=== PATIENT | male | born 1945 | race Caucasian/White ===

== ENCOUNTER 2016-06-07 12:17 | Emergency (ER) | payer MEDICARE ==
[~2016-06-07] VITALS: Ht 177.8 cm; Wt 85.7 kg
[~2016-06-07 12:17] MED LIST: ASPIR 8181 MG PO; FERROUS SULFAT325 MG ORAL; IBUPROFEN600 MG ORAL; LOVASTATIN40 MG PO; OMEPRAZOLE20 M2 PO; RESTORIL7.5 MG ORAL; TRAMADOL HCL50 MG ORAL; ZOVIRAX800 MG ORAL; [UNRECOGNIZED DRUG - REMARK]; [UNRECOGNIZED DRUG - REMARK]
[2016-06-07 13:30] LABS: APPEARANCE,URINE CLEAR; BASOPHILS % (AUTO) 0.8 % (0.0-2.0); KETONES,URINE 1+ (NEGATIVE); LEUKOCYTE ESTERASE ,URINE 1+ (NEGATIVE); LYMPHOCYTES % (AUTO) 27.8 % (20.0-45.0); MEAN CORPUSCULAR HGB CONC 32.8 G/DL (32.0-36.0); MEAN CORPUSCULAR VOLUME 88 FL (80-99); MEAN PLATELET VOLUME 8.4 FL (6.5-10.1); MONOCYTES % (AUTO) 8.6 % (1.0-10.0); NEUTROPHILS % (AUTO) 58.8 % (45.0-75.0); NITRITE,URINE NEGATIVE (NEGATIVE); PH,URINE 5 (4.5-8.0); PLATELET COUNT 158 K/UL (150-450); PROTEIN,URINE 1+ (NEGATIVE); RED CELL DISTRIBUTION WIDTH 12.5 % (11.6-14.8); UROBILINOGEN,URINE 1 MG/DL (0.0-1.0); WHITE BLOOD COUNT 5.9 K/UL (4.8-10.8)
[2016-06-07 13:37] VITALS: BP 107/67
[2016-06-07 13:38] VITALS: BP 113/71
[2016-06-07 13:39] VITALS: BP 113/71
[2016-06-07 13:41] LABS: ALANINE AMINOTRANSFERASE 14 U/L (3-41); ALBUMIN/GLOBULIN RATIO 1.3 (1.0-2.7); ANION GAP 16 (5-15); ASPARTATE AMINO TRANSFERASE 14 U/L (5-40); CALCIUM 9.3 mg/dL (8.6-10.2); CARBON DIOXIDE 20 mEQ/L (20-30); CHLORIDE 103 mEQ/L (98-107); HEMOLYSIS 10; LIPASE 33 U/L (< 60); POTASSIUM 4.2 mEQ/L (3.4-4.9); SODIUM 139 mEQ/L (135-145); TOTAL PROTEIN 6.4 g/dL (6.6-8.7)
[2016-06-07 13:45] LABS: BACTERIA,URINE FEW /HPF; MUCUS,URINE MODERATE /LPF (NONE/OCC); PROTHROMBIN TIME 10.3 SEC (9.30-11.50); RBC,URINE 0-2 /HPF (0 - 0); SQUAMOUS EPITHELIAL CELL,UR OCCASIONAL /LPF (NONE/OCC)
--- NOTE | 2016-06-07 13:46 | Emergency Room Report ---
History of Present Illness General Chief Complaint: Gastrointestinal Bleed Source: Patient Present Illness [facility] This is a patient of Dr. Thomson, who has a complaint of rectal bleeding, over the last 3 days. He has a background of constipation and some hemorrhoids with abnormal colonoscopy approximately 6 years ago with rectal polyps. He was seen by primary yesterday and noted having 3 days of bleeding somewhat copious in the bathroom noted blood on his stool and in the bowl. He describes mild abdominal cramping but no bleeding in between bowel movements, no bowel movement today but lesser bleeding bowel movement yesterday. His primary found to have some signs of orthostatic hypotension he was concerned and referred into the ER. He spoke with me on the phone as the patient was being brought into the ER today. The patient self is not a blood there's and is denies vomiting chest pain abdominal pain fevers or chills. Denies a history of diverticulitis or low cyst to his knowledge. 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 He also has history of GERD. No history of abdominal surgery or ulcers. His primary doctor performed a rectal and stated there was blood in the stool, and the patient also reports no changes in medications or abdominal trauma. Allergies: Coded Allergies: No Known Allergies (Unverified , 07/14/12) Patient History Social History: Reports: drug use, Denies: alcohol use, smoking Immunizations: UTD Reviewed Nursing Documentation: PMH: Agreed Nursing Documentation-PM Past Medical History: No History, Except For Hx Cardiac Problems: Yes Hx Cancer: No Hx Gastrointestinal Problems: Yes - GERD Hx Neurological Problems: No Review of Systems Gastrointestinal: Reports: abdominal pain, other - dark red blood per rectum, with stool, see HPI All Other Systems: negative except mentioned in HPI Physical Exam Vital Signs Date Time Temp Pulse Resp B/P Pulse Ox O2 Delivery O2 Flow Rate FiO2 06/07/16 12:25 97.0 95 16 115/76 96 Room Air Sp02 EP Interpretation: reviewed, abnormal - near tachycardia General Appearance: normal inspection, well appearing, no apparent distress, alert Head: atraumatic Eyes: bilateral eye normal inspection ENT: normal ENT inspection, hearing grossly normal, normal voice Neck: normal inspection, full range of motion, supple, no bony tend Respiratory: normal inspection, lungs clear, normal breath sounds, no respiratory distress, no retraction, no wheezing Cardiovascular #1: regular rate, rhythm, no edema Gastrointestinal: normal bowel sounds, non tender, soft, no guarding, no hernia Genitourinary: no CVA tenderness Musculoskeletal: normal inspection, back normal, normal range of motion Neurologic: normal inspection, alert, responsive, network architect III-XII nml as tested, speech normal Psychiatric: normal inspection, judgement/insight normal, mood/affect normal Skin: normal inspection, normal color, no rash Medical Decision Making Diagnostic Impression: Primary Impression: Gastrointestinal hemorrhage ER Course Well-appearing 71-year-old gentleman with history of rectal bleeding. Not hypotensive on my exam and overall cooperative. Possibility of diverticulitis versus bleeding AV malformation versus severe hemorrhoidal bleeding. Also possible peptic ulcer disease for brisk bleeding. Overall well-appearing but will perform basic blood work to include type and cross as well as a CT scan of the abdomen with contrast for further evaluation, and will followup with his primary Dr. Spoke with Dr. Thomson regarding CT scan and labs. Patient is not orthostatic. Patient is overall doing well and shows no signs of anemia. Patient is being referred to followup with his GI doctor as well as his primary doctor regarding the renal mass. Discussed plan with patient who agrees with followup as an outpatient. Laboratory Tests Test 06/07/16 13:00 White Blood Count 5.9 K/UL (4.8-10.8) Red Blood Count 4.70 M/UL (4.70-6.10) Hemoglobin 13.6 G/DL (14.2-18.0) L Hematocrit 41.5 % (42.0-52.0) L Mean Corpuscular Volume 88 FL (80-99) Mean Corpuscular Hemoglobin 29.0 PG (27.0-31.0) Mean Corpuscular Hemoglobin Concent 32.8 G/DL (32.0-36.0) Red Cell Distribution Width 12.5 % (11.6-14.8) Platelet Count 158 K/UL (150-450) Mean Platelet Volume 8.4 FL (6.5-10.1) Neutrophils (%) (Auto) 58.8 % (45.0-75.0) Lymphocytes (%) (Auto) 27.8 % (20.0-45.0) Monocytes (%) (Auto) 8.6 % (1.0-10.0) Eosinophils (%) (Auto) 4.0 % (0.0-3.0) H Basophils (%) (Auto) 0.8 % (0.0-2.0) Prothrombin Time 10.3 SEC (9.30-11.50) Prothromb Time International Ratio 1.0 (0.9-1.1) Activated Partial Thromboplast Time 26 SEC (23-33) Urine Color Yellow Urine Appearance Clear Urine pH 5 (4.5-8.0) Urine Specific [place] 1.030 (1.005-1.035) Urine Protein 1+ (NEGATIVE) H Urine Glucose (UA) Negative (NEGATIVE) Urine Ketones 1+ (NEGATIVE) H Urine Occult Blood Negative (NEGATIVE) Urine Nitrite Negative (NEGATIVE) Urine Bilirubin Negative (NEGATIVE) Urine Urobilinogen 1 MG/DL (0.0-1.0) H Urine Leukocyte Esterase 1+ (NEGATIVE) H Urine RBC 0-2 /HPF (0 - 0) H Urine WBC 2-4 /HPF (0 - 0) Urine Squamous Epithelial Cells Occasional /LPF Urine Bacteria Few /HPF (NONE) Urine Mucus Moderate /LPF (NONE/OCC) H Sodium Level 139 mEQ/L (135-145) Potassium Level 4.2 mEQ/L (3.4-4.9) Chloride Level 103 mEQ/L (98-107) Carbon Dioxide Level 20 mEQ/L (20-30) Anion Gap 16 (5-15) H Blood Urea Nitrogen 17 mg/dL (7-23) Creatinine 1.0 mg/dL (0.7-1.2) Estimat Glomerular Filtration Rate mL/min (>60) Glucose Level 91 mg/dL (74-106) Calcium Level 9.3 mg/dL (8.6-10.2) Total Bilirubin 0.4 mg/dL (0.0-1.2) Aspartate Amino Transf (AST/SGOT) 14 U/L (5-40) Alanine Aminotransferase (ALT/SGPT) 14 U/L (3-41) Alkaline Phosphatase 85 U/L (40-129) Total Protein 6.4 g/dL (6.6-8.7) L Albumin 3.7 g/dL (3.5-5.2) Globulin 2.7 g/dL Albumin/Globulin Ratio 1.3 (1.0-2.7) Lipase 33 U/L (< 60) EKG Diagnostic Results EKG Time: 13:14 EP Interpretation: normal sinus, left bundle-branch, rate 73 Rhythm: NSR ST Segments: no acute changes Rhythm Strip Diag. Results Rhythm Strip Time: 13:46 EP Interpretation: yes Rate: 93 Rhythm: NSR, no PVC's, no ectopy CT/MRI/US Diagnostic Results CT/MRI/US Diagnostic Results : Imaging Test Ordered: CT abdomen and pelvis w/contrast Impression No sign of GI bleed, mass, diverticulitis. Right-sided renal mass which may be suspicious for neoplasm. Reevaluation Time: 15:52 Last Vital Signs Date Time Temp Pulse Resp B/P Pulse Ox O2 Delivery O2 Flow Rate FiO2 06/07/16 12:25 97.0 95 16 115/76 96 Room Air Status: unchanged Disposition: HOME, SELF-CARE Condition: Stable Scripts Pramoxine Hcl (PROCTOFOAM) 15 Gm Foam 15 GM TP BID for 7 Days, #14 % Prov: Lex Horton MD 06/07/16 Referrals: IRAJ THOMSON (PCP) Lex Horton MD Jun 07, 2016 13:46
[2016-06-07] MEDS ORDERED: PROCTOFOAM15 GM TP (15:39)
[2016-06-07 16:00] VITALS: BP 109/70
[2016-06-07 16:03] VITALS: BP 109/70
--- NOTE | 2016-06-08 07:55 | Diagnostic Imaging Report ---
Indication: Abdominal pain Technique: Continuous helical transaxial imaging of the abdomen and pelvis was obtained from the lung bases to the pubic symphysis during intravenous contrast administration. Coronal 2-D reformats were also obtained. Study obtained in a Siemens sensation [address] Total Dose length Product (DLP): [address] Dose Index Volume (CTDIvol): 18 mGy Comparison: None Findings: There is mild posterior basilar atelectasis demonstrated. Moderate size hiatal hernia is present. Gallbladder is contracted. Liver and spleen are normal. Pancreas is unremarkable. There is a left renal cyst. In the upper pole the right kidney there is an enhancing mass measuring approximately 2.2 cm. This is suspicious for a solid tumor. More comprehensive evaluation would consist of a multiphase contrast CT. No adenopathy is appreciated. There is no free fluid or free air. No evidence of bowel obstruction. Prostate gland is enlarged measuring 6.7 x 5.8 x 8.5 cm. Appendectomy noted. Atherosclerotic plaques in the aorta demonstrated. Impression: 2.2 cm mass upper pole right kidney suspicious for renal cell carcinoma. More comprehensive evaluation with multiphase CT recommended. Prostate enlargement. Contracted gallbladder. Atherosclerotic vascular disease. Status post appendectomy Left renal cyst Posterior basilar atelectasis Moderate size hiatal hernia The CT scanner at [facility] is accredited by the [employer] and the scans are performed using protocols designed to limit radiation exposure to as low as reasonably achievable to attain images of sufficient resolution adequate for diagnostic evaluation.
--- NOTE | 2016-06-08 23:23 | Cardiology Report ---
APPROVED REPORT EKG Measurement Heart [id number] Normal sinus rhythm Left bundle branch block Abnormal ECG
== END 2016-06-07 16:03 | disposition home or self-care (01) ==
LOC: EMR 12:48
DX: K92.2 Gastrointestinal hemorrhage, unspecified (principal); Z86.010 Personal history of colon polyps; Z87.19 Personal history of other diseases of the digestive system
CPT/HCPCS: 36415; 74177; 80053; 81003; 83690; 85025; 85610; 85730; 86850; 86900; 86901; 93005; 96374; 96375; 99284; Q9967

== ENCOUNTER → 2016-06-30 | Outpatient (CLI) | payer MEDICARE ==
[~2016-06-30] MED LIST changes: +PROCTOFOAM15 GM TP
--- NOTE | 2016-06-30 16:30 | Diagnostic Imaging Report ---
Indication: Renal mass Technique: MRI examination of the abdomen was performed in a 1.5 Edna magnet. Sequences obtained include coronal and axial T2 single shot fast spin-echo, axial T2 fast recovery fast spin-echo with fat saturation, axial and coronal LAVA pre-and post gadolinium in multiple phases of enhancement, axial 3-D T1 gradient echo in and out of phase. Comparison: CT 06/07/16 Findings: There is a 2.2 cm mass demonstrated in the upper pole the right kidney. The mass is solid and demonstrates enhancement with gadolinium. The mass appears to enhance most intensely at the peripheral margin on early arterial phase. On noncontrast imaging the mass is isointense to surrounding renal parenchyma on T1-weighted images and is fairly bright on T2-weighted images. Findings are consistent with renal cell carcinoma until proven otherwise. There are some breathing motion limiting evaluation. There is a cyst in the midpole of the left kidney measuring 2.4 cm. Gallbladder is absent. No biliary ductal dilatation is seen. There is no ascites identified. Moderate size hiatal hernia noted. Impression: 2.2 cm enhancing mass in the upper pole the right kidney consistent with renal cell carcinoma. Left renal cyst Moderate hiatal hernia Breathing motion artifacts
== END | disposition home or self-care (01) ==
LOC: MRI 14:21
DX: N28.1 Cyst of kidney, acquired (principal); K44.9 Diaphragmatic hernia without obstruction or gangrene
CPT/HCPCS: 74183; A9579

== ENCOUNTER 2018-06-13 16:07 | Inpatient (IN) | payer MEDICARE ==
[~2018-06-13] VITALS: Ht 177.8 cm; Wt 84.4 kg
--- NOTE | 2018-06-13 16:16 | Emergency Room Report ---
History of Present Illness General Chief Complaint: Weakness Source: Patient Present Illness HPI Patient is a 73-year-old male who presented after increased diarrhea. Patient was noted to be hypotensive at his physician's office. Patient had been having increased generalized weakness. Patient reports having multiple episodes of nonbloody stool. He denies any vomiting. He denies any abdominal pain apart from some intermittent cramping. He denies any fever. He states he been having increased dizziness with upright position.Patient states he had prior history of AICD. He denies any prior history of congestive heart failure. He denies any severe headache or extremity pain. He denies any recent episodes of bleeding. Allergies: Coded Allergies: No Known Allergies (Unverified , 06/13/18) Patient History Past Medical History: see triage record Past Surgical History: pacemaker Reviewed Nursing Documentation: PMH: Agreed; PSxH: Agreed Nursing Documentation-PMH Hx Cardiac Problems: Yes Hx Cancer: No Hx Gastrointestinal Problems: Yes - GERD Hx Neurological Problems: No Review of Systems All Other Systems: negative except mentioned in HPI Physical Exam Sp02 EP Interpretation: reviewed, normal General Appearance: normal inspection, well appearing, no apparent distress, alert, GCS 15 Head: atraumatic ENT: normal ENT inspection, hearing grossly normal, normal voice, dry mucus membranes Neck: normal inspection, full range of motion, supple, no bony tend Respiratory: normal inspection, lungs clear, normal breath sounds, no respiratory distress, no retraction, no wheezing Cardiovascular #1: regular rate, rhythm, no edema Gastrointestinal: normal inspection, normal bowel sounds, non tender, soft, no guarding, no hernia Genitourinary: no CVA tenderness Musculoskeletal: normal inspection, back normal, normal range of motion Neurologic: normal inspection, alert, oriented x3, responsive, battery technician III-XII nml as tested, speech normal Psychiatric: normal inspection, judgement/insight normal, mood/affect normal Skin: normal inspection, normal color, no rash Medical Decision Making Diagnostic Impression: Primary Impression: Gastroenteritis Additional Impressions: Hypovolemia Hypotensive episode Hypokalemia due to loss of potassium ER Course Patient presented for abdominal pain. Differential diagnoses included ischemic bowel, appendicitis, perforated viscus, abdominal aortic aneurysm, inferior myocardial infarction, viral gastroenteritis among others.Patient was noted to be somewhat hypotensive initially. He was started on IV fluids. Patient was noted to have some evidence of dehydration on physical exam. Patient was started on oral potassium for hypokalemia. Patient was discussed with Dr. Alfonso Morton for inpatient management due to coverage for primary physician. Laboratory Tests Test 06/13/18 16:31 06/13/18 17:53 06/14/18 06:45 White Blood Count 7.7 K/UL (4.8-10.8) 5.5 K/UL (4.8-10.8) Red Blood Count 4.69 M/UL (4.70-6.10) L 4.14 M/UL (4.70-6.10) L Hemoglobin 13.5 G/DL (14.2-18.0) L 11.7 G/DL (14.2-18.0) L Hematocrit 40.5 % (42.0-52.0) L 35.8 % (42.0-52.0) L Mean Corpuscular Volume 86 FL (80-99) 86 FL (80-99) Mean Corpuscular Hemoglobin 28.8 PG (27.0-31.0) 28.2 PG (27.0-31.0) Mean Corpuscular Hemoglobin Concent 33.3 G/DL (32.0-36.0) 32.6 G/DL (32.0-36.0) Red Cell Distribution Width 12.6 % (11.6-14.8) 13.1 % (11.6-14.8) Platelet Count 168 K/UL (150-450) 149 K/UL (150-450) L Mean Platelet Volume 6.6 FL (6.5-10.1) 7.1 FL (6.5-10.1) Neutrophils (%) (Auto) 61.6 % (45.0-75.0) 53.0 % (45.0-75.0) Lymphocytes (%) (Auto) 25.9 % (20.0-45.0) 30.0 % (20.0-45.0) Monocytes (%) (Auto) 10.1 % (1.0-10.0) H 10.3 % (1.0-10.0) H Eosinophils (%) (Auto) 1.4 % (0.0-3.0) 5.9 % (0.0-3.0) H Basophils (%) (Auto) 1.0 % (0.0-2.0) 0.8 % (0.0-2.0) Sodium Level 137 MMOL/L (136-145) 139 MMOL/L (136-145) Potassium Level 2.9 MMOL/L (3.5-5.1) L 3.9 MMOL/L (3.5-5.1) Chloride Level 100 MMOL/L (98-107) 109 MMOL/L (98-107) H Carbon Dioxide Level 23 MMOL/L (21-32) 23 MMOL/L (21-32) Anion Gap 14 mmol/L (5-15) 7 mmol/L (5-15) Blood Urea Nitrogen 33 mg/dL (7-18) H 26 mg/dL (7-18) H Creatinine 1.9 MG/DL (0.55-1.30) H 1.2 MG/DL (0.55-1.30) Estimate Glomerular Filtration Rate mL/min (>60) mL/min (>60) Glucose Level 108 MG/DL (74-106) H 89 MG/DL (74-106) Calcium Level 9.7 MG/DL (8.5-10.1) 8.9 MG/DL (8.5-10.1) Total Bilirubin 0.7 MG/DL (0.2-1.0) 0.6 MG/DL (0.2-1.0) Aspartate Amino Transferase (AST) 19 U/L (15-37) 15 U/L (15-37) Alanine Aminotransferase (ALT) 20 U/L (12-78) 20 U/L (12-78) Alkaline Phosphatase 104 U/L (46-116) 83 U/L (46-116) Troponin I 0.001 ng/mL (0.000-0.056) Total Protein 7.2 G/DL (6.4-8.2) 5.8 G/DL (6.4-8.2) L Albumin 3.2 G/DL (3.4-5.0) L 2.6 G/DL (3.4-5.0) L Globulin 4.0 g/dL 3.2 g/dL Albumin/Globulin Ratio 0.8 (1.0-2.7) L 0.8 (1.0-2.7) L Lipase 124 U/L (73-393) Urine Color Yellow Urine Appearance Clear Urine pH 5 (4.5-8.0) Urine Specific [place] 1.015 (1.005-1.035) Urine Protein 2+ (NEGATIVE) H Urine Glucose (UA) Negative (NEGATIVE) Urine Ketones 1+ (NEGATIVE) H Urine Blood 2+ (NEGATIVE) H Urine Nitrite Negative (NEGATIVE) Urine Bilirubin Negative (NEGATIVE) Urine Urobilinogen 1 MG/DL (0.0-1.0) H Urine Leukocyte Esterase 1+ (NEGATIVE) H Urine RBC 5-10 /HPF (0 - 0) H Urine WBC 5-10 /HPF (0 - 0) H Urine Squamous Epithelial Cells None /LPF (NONE/OCC) Urine Bacteria Moderate /HPF (NONE) H Urine Fine Granular Casts 5-10 /LPF (NONE) H Pro-B-Type Natriuretic Peptide 144 pg/mL (0-125) H EKG Diagnostic Results Rate: normal Rhythm: other ST Segments: no acute changes ASA given to the pt in ED: Yes Status: improved Disposition: PLACE IN OBSERVATION Condition: Stable Shahzad Walters MD Jun 13, 2018 16:16
[2018-06-13] MEDS ORDERED: UNOBMED (16:23)
--- NOTE | 2018-06-13 16:25 | NUR ---
ED Nurse Note: Patient walked into ED from home, he was sent by his DR today, patient c/o dizziness patient reports vomiting, diarrhea for couple days, in his exam from PMD, his BP was low
[2018-06-13 16:48] VITALS: BP 99/51
[2018-06-13 17:09] LABS: EOSINOPHILS % (AUTO) 1.4 % (0.0-3.0); HEMATOCRIT 40.5 % (42.0-52.0); HEMOGLOBIN 13.5 G/DL (14.2-18.0); LYMPHOCYTES % (AUTO) 25.9 % (20.0-45.0); MEAN CORPUSCULAR VOLUME 86 FL (80-99); MONOCYTES % (AUTO) 10.1 % (1.0-10.0); NEUTROPHILS % (AUTO) 61.6 % (45.0-75.0); PLATELET COUNT 168 K/UL (150-450); RED BLOOD COUNT 4.69 M/UL (4.70-6.10); RED CELL DISTRIBUTION WIDTH 12.6 % (11.6-14.8); WHITE BLOOD COUNT 7.7 K/UL (4.8-10.8)
[2018-06-13 17:14] LABS: ANION GAP 14 mmol/L (5-15); BLOOD UREA NITROGEN 33 mg/dL (7-18); CALCIUM 9.7 MG/DL (8.5-10.1); CARBON DIOXIDE 23 MMOL/L (21-32); CHLORIDE 100 MMOL/L (98-107); CREATININE 1.9 MG/DL (0.55-1.30); POTASSIUM 2.9 MMOL/L (3.5-5.1); SODIUM 137 MMOL/L (136-145)
[2018-06-13 17:18] LABS: ALANINE AMINOTRANSFERASE 20 U/L (12-78); ALBUMIN 3.2 G/DL (3.4-5.0); ALBUMIN/GLOBULIN RATIO 0.8 (1.0-2.7); ALKALINE PHOSPHATASE 104 U/L (46-116); ASPARTATE AMINO TRANSFERASE 19 U/L (15-37); BILIRUBIN,TOTAL 0.7 MG/DL (0.2-1.0)
[2018-06-13 18:09] LABS: APPEARANCE,URINE CLEAR; BILIRUBIN, URINE NEGATIVE (NEGATIVE); GLUCOSE, URINE (UA) NEGATIVE (NEGATIVE); KETONES,URINE 1+ (NEGATIVE); LEUKOCYTE ESTERASE ,URINE 1+ (NEGATIVE); NITRITE,URINE NEGATIVE (NEGATIVE); PH,URINE 5 (4.5-8.0); PROTEIN,URINE 2+ (NEGATIVE); UROBILINOGEN,URINE 1 MG/DL (0.0-1.0)
[2018-06-13 18:21] LABS: COLOR,URINE YELLOW
[2018-06-13 18:41] VITALS: BP 111/61
--- NOTE | 2018-06-13 18:42 | NUR ---
ED Nurse Note: patient is resting comfortably in bed. NS is infusing at 100ml per Dr. Walters's verbal order
--- NOTE | 2018-06-13 19:16 | NUR ---
HAND-OFF: Report given to Roddy Silverio RN .
--- NOTE | 2018-06-13 19:17 | NUR ---
HAND-OFF: Report received from Amrit CEBALLOS.
--- NOTE | 2018-06-13 19:50 | NUR ---
ED Nurse Note: Belongings sheet completed. patient awaiting bed assignment
[2018-06-13] MEDS ORDERED: LISINOPRIL5 MG ORAL (20:25)
[2018-06-13] MEDS ORDERED: LIPITOR80 MG ORAL (20:25)
[2018-06-13] MEDS ORDERED: CITALOPRAM10 MG/5 M1 ORAL (20:25)
[2018-06-13] MEDS ORDERED: METOPROLOL SUCC25 MG ORAL (20:25)
[2018-06-13] MEDS ORDERED: OMEGA ESSENTIA240 ML PO (20:25)
--- NOTE | 2018-06-13 20:38 | NUR ---
ED Nurse Note: Called to give report, was told that Anshul RN and the hand hose cutter were both unavailable.
[2018-06-13 20:39] VITALS: BP 98/54
--- NOTE | 2018-06-13 20:59 | Cardiology Progress Note ---
Assessment/Plan Assessment/Plan [id number] Objective Last 24 Hour Vital Signs Date Time Temp Pulse Resp B/P (MAP) Pulse Ox O2 Delivery O2 Flow Rate FiO2 06/13/18 20:39 97.8 66 14 98/54 100 Room Air 06/13/18 18:41 97.8 64 14 111/61 100 Room Air 06/13/18 16:50 78 13 Room Air 06/13/18 16:48 97.8 64 11 99/51 100 Room Air 06/13/18 16:19 78 13 68/49 97 Room Air Laboratory Tests Test 06/13/18 16:31 06/13/18 17:53 White Blood Count 7.7 K/UL (4.8-10.8) Red Blood Count 4.69 M/UL (4.70-6.10) L Hemoglobin 13.5 G/DL (14.2-18.0) L Hematocrit 40.5 % (42.0-52.0) L Mean Corpuscular Volume 86 FL (80-99) Mean Corpuscular Hemoglobin 28.8 PG (27.0-31.0) Mean Corpuscular Hemoglobin Concent 33.3 G/DL (32.0-36.0) Red Cell Distribution Width 12.6 % (11.6-14.8) Platelet Count 168 K/UL (150-450) Mean Platelet Volume 6.6 FL (6.5-10.1) Neutrophils (%) (Auto) 61.6 % (45.0-75.0) Lymphocytes (%) (Auto) 25.9 % (20.0-45.0) Monocytes (%) (Auto) 10.1 % (1.0-10.0) H Eosinophils (%) (Auto) 1.4 % (0.0-3.0) Basophils (%) (Auto) 1.0 % (0.0-2.0) Sodium Level 137 MMOL/L (136-145) Potassium Level 2.9 MMOL/L (3.5-5.1) L Chloride Level 100 MMOL/L (98-107) Carbon Dioxide Level 23 MMOL/L (21-32) Anion Gap 14 mmol/L (5-15) Blood Urea Nitrogen 33 mg/dL (7-18) H Creatinine 1.9 MG/DL (0.55-1.30) H Estimat Glomerular Filtration Rate mL/min (>60) Glucose Level 108 MG/DL (74-106) H Calcium Level 9.7 MG/DL (8.5-10.1) Total Bilirubin 0.7 MG/DL (0.2-1.0) Aspartate Amino Transf (AST/SGOT) 19 U/L (15-37) Alanine Aminotransferase (ALT/SGPT) 20 U/L (12-78) Alkaline Phosphatase 104 U/L (46-116) Troponin I 0.001 ng/mL (0.000-0.056) Total Protein 7.2 G/DL (6.4-8.2) Albumin 3.2 G/DL (3.4-5.0) L Globulin 4.0 g/dL Albumin/Globulin Ratio 0.8 (1.0-2.7) L Lipase 124 U/L (73-393) Urine Color Yellow Urine Appearance Clear Urine pH 5 (4.5-8.0) Urine Specific [place] 1.015 (1.005-1.035) Urine Protein 2+ (NEGATIVE) H Urine Glucose (UA) Negative (NEGATIVE) Urine Ketones 1+ (NEGATIVE) H Urine Blood 2+ (NEGATIVE) H Urine Nitrite Negative (NEGATIVE) Urine Bilirubin Negative (NEGATIVE) Urine Urobilinogen 1 MG/DL (0.0-1.0) H Urine Leukocyte Esterase 1+ (NEGATIVE) H Urine RBC 5-10 /HPF (0 - 0) H Urine WBC 5-10 /HPF (0 - 0) H Urine Squamous Epithelial Cells None /LPF (NONE/OCC) Urine Bacteria Moderate /HPF (NONE) H Urine Fine Granular Casts 5-10 /LPF (NONE) H Alfonso Morton MD Jun 13, 2018 20:59
--- NOTE | 2018-06-13 21:05 | NUR ---
ED Nurse Note: Patient cleared for transport to med surg. Report given to Anshul CEBALLOS in advance of transport. Patient A&Ox4, ambulatory with steady gait. Accompanied by ERTAUGUSTUS and departed from Unit with all belongings. Patient vital signs stable.
--- NOTE | 2018-06-13 21:10 | NUR ---
NURSE NOTES: Report taken from Dina CONTRERAS RN.
--- NOTE | 2018-06-13 21:15 | NUR ---
NURSE NOTES: Patient brought to floor on hospital bed, able to ambulate to room bed. Patient awake, A&Ox4. No skin issues. IV c/d/i and patent, IV fluids: NS @ 50ml/hr. No signs of distress on room air. MRSA swabs taken, VRE refused. contacted for new orders. Bed in lowest position, call light within reach.
[2018-06-13 21:20] VITALS: BP 131/77
[2018-06-13] MEDS ORDERED: traMADol 50mg tab ORAL PRN (22:15)
[2018-06-13] MEDS: Atorvastatin 80mg tab ORAL SCH (22:51)
[2018-06-14] VITALS: BP 125/76
--- NOTE | 2018-06-14 03:46 | History and Physical Report ---
DATE OF ADMISSION: 06/13/2018 REASON FOR EVALUATION AND MANAGEMENT: Dehydration secondary to cardiomyopathy. HISTORY OF PRESENT ILLNESS: This is a 73-year-old gentleman, who is known to me from prior evaluation, hospitalization. The patient believes approximately seven to eight days ago he developed flu symptoms that were associated with a lot of nausea and vomiting for a few times and then subsequently he developed diarrhea, and over the past seven to eight days, he has had difficulty with continuing to have diarrhea and having some weakness and dizziness. At times when he gets up, he has to hold onto objects. He has had two episodes of near syncopal episode, but otherwise he has not passed out. He has had some generalized weakness. He has not been able to see his primary care physician because he was busy, but he finally presented to the emergency room, he was noted to have a blood pressure in the 60s. He does not really have any chest pain or pressure. There is no PND, no orthopnea, no palpitations. No discomfort of any kind in the chest. PAST MEDICAL HISTORY: Positive for a history of left bundle-branch conduction defect and hyperlipidemia, cardiomyopathy, coronary disease with a calcium score of 710 with negative ischemia evaluation, history of intracardiac defibrillator implantation, history of back pain, hemorrhoids, kidney lesion, hepatitis B 35 years ago, hay fever, status post appendectomy. ALLERGIES: Coreg, rash on the face. SOCIAL HISTORY: He quit smoking 30 years ago. Two pack per day for 9 to 10 years. Alcohol has been using one to two drinks with marijuana. Not . No kids. . REVIEW OF SYSTEMS: GASTROINTESTINAL: As mentioned, nausea, vomiting, and diarrhea past day or so. Now, he seems to think that he is having some formed stools. GENITOURINARY: Negative. PULMONARY: Negative. CONSTITUTIONAL: Negative. NEUROLOGIC: Negative. PHYSICAL EXAMINATION: GENERAL: Shows to be a middle-aged gentleman, in no respiratory distress. NECK: Supple. No jugular venous distention. LUNGS: Clear to auscultation and percussion. CARDIAC: Regular rate and rhythm. No heaves, thrills, gallops, or rubs. ABDOMEN: Soft, nontender. Positive bowel sounds. EXTREMITIES: There is no clubbing, cyanosis, or edema. NEUROLOGICAL: He is awake, alert, and responsive. LABORATORY AND DIAGNOSTIC DATA: White count 7.7, hemoglobin 13.5, and platelet count 168. Sodium is 137, potassium 2.9, chloride 100, bicarbonate 23, BUN 33, creatinine 1.9, and glucose of 108. First set of cardiac enzymes 0.00. Albumin of 3.2, lipase of 124. Urinalysis is positive for 5 to 10 rbc's, 5 to 10 wbc's, squamous epithelial none, urine bacteria many, no other abnormalities. He has no x-rays done. ASSESSMENT AND PLAN: 1. Diarrhea. 2. Dehydration. 3. Renal insufficiency. 4. Cardiomyopathy. 5. Coronary calcification with negative coronary ischemia. 6. Hyperlipidemia. 7. 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 The patient was admitted to the hospital, intravenous had already been administered in the emergency room, we will be careful with further IV fluid administration with history of cardiomyopathy. The patient's blood pressure most recently was 134. He started at a systolic pressure of 64 at the time of arrival. His usual medications will be continued, aspirin, Lipitor, Celexa, lisinopril 20 mg twice daily. If his blood pressure allows, we will probably hold that for the time being. , valacyclovir and other medication will be continued. He has no recent travel history. There is no recent use of antibiotics. Stool will be sent for culture, ova and parasite and C. difficile colitis as a matter of routine. The patient will be gentle hydrated overnight and hopefully over the next 24 to 36 hours, we will be able to discharge home. Alfonso Morton M.D. DR: SYMONE JOB#: [id number] CC:
[2018-06-14 04:00] VITALS: BP_SYST 116; BP_SYST 120; BP_DIAS 70; BP_DIAS 78
--- NOTE | 2018-06-14 07:35 | NUR ---
HAND-OFF: Report given to LIN Zhao. VS stable.
[2018-06-14 07:42] LABS: BASOPHILS % (AUTO) 0.8 % (0.0-2.0); EOSINOPHILS % (AUTO) 5.9 % (0.0-3.0); HEMATOCRIT 35.8 % (42.0-52.0); HEMOGLOBIN 11.7 G/DL (14.2-18.0); MEAN CORPUSCULAR VOLUME 86 FL (80-99); MONOCYTES % (AUTO) 10.3 % (1.0-10.0); PLATELET COUNT 149 K/UL (150-450); RED BLOOD COUNT 4.14 M/UL (4.70-6.10); RED CELL DISTRIBUTION WIDTH 13.1 % (11.6-14.8); WHITE BLOOD COUNT 5.5 K/UL (4.8-10.8)
--- NOTE | 2018-06-14 07:53 | NUR ---
NURSE NOTES: report received from LIN Brian. Pt in bed, asleep, respirations regular and unlabored, bed in lowest position, call light within reach.
[2018-06-14 08:00] VITALS: BP 124/81
[2018-06-14 08:34] LABS: ALANINE AMINOTRANSFERASE 20 U/L (12-78); ALBUMIN 2.6 G/DL (3.4-5.0); ALBUMIN/GLOBULIN RATIO 0.8 (1.0-2.7); ALKALINE PHOSPHATASE 83 U/L (46-116); ANION GAP 7 mmol/L (5-15); ASPARTATE AMINO TRANSFERASE 15 U/L (15-37); BILIRUBIN,TOTAL 0.6 MG/DL (0.2-1.0); BLOOD UREA NITROGEN 26 mg/dL (7-18); CALCIUM 8.9 MG/DL (8.5-10.1); CARBON DIOXIDE 23 MMOL/L (21-32); CHLORIDE 109 MMOL/L (98-107); CREATININE 1.2 MG/DL (0.55-1.30); POTASSIUM 3.9 MMOL/L (3.5-5.1); SODIUM 139 MMOL/L (136-145)
[2018-06-14] MEDS: Aspirin Baby 81mg ORAL SCH (08:55)
[2018-06-14] MEDS: Metoprolol Succinate XL 25mg tab ORAL SCH (08:56)
[2018-06-14] MEDS: Acyclovir 200mg Cap ORAL SCH (08:56)
[2018-06-14] MEDS: Citalopram Hydrobromide 10mg Tab ORAL SCH (08:56)
[2018-06-14] MEDS: Heparin 5000 units/ml inj SUBQ SCH ×2 (09:00→21:00)
[2018-06-14] MEDS: Tamsulosin 0.4mg cap ORAL SCH (10:12)
--- NOTE | 2018-06-14 10:27 | NUR ---
NURSE NOTES: Performed post void bladder scan: 0ml
[2018-06-14 11:30] VITALS: BP 139/74
--- NOTE | 2018-06-14 14:43 | NUR ---
CASE MANAGEMENT:REVIEW 73YR OLD MALE FROM HOME CC; SENT FROM MD'S OFFICE. VOMITING AND DIARRHEA X8 DAYS. HYPOTENSION SI: GASTROENTERITIS. HYPOKALEMIA. HYPOVOLEMIA 97.8 78 13 68/49 97% ON RA H/H-13.5/40.5 K-2.9 BUN+33 CR+1.9 IS: 1L NS BOLUS X2 500CC NS BOLUS X1 KCL PO : TO MED/SURG
--- NOTE | 2018-06-14 15:15 | NUR ---
NURSE NOTES: Sent stool sample to lab for ova parasite & cx,
[2018-06-14 15:53] VITALS: BP 141/77
[2018-06-14 18:21] LABS: BASOPHILS % (AUTO) 1.2 % (0.0-2.0); EOSINOPHILS % (AUTO) 6.1 % (0.0-3.0); HEMATOCRIT 35.9 % (42.0-52.0); HEMOGLOBIN 11.9 G/DL (14.2-18.0); LYMPHOCYTES % (AUTO) 31.9 % (20.0-45.0); MEAN CORPUSCULAR VOLUME 86 FL (80-99); MONOCYTES % (AUTO) 8.5 % (1.0-10.0); NEUTROPHILS % (AUTO) 52.2 % (45.0-75.0); PLATELET COUNT 138 K/UL (150-450); RED BLOOD COUNT 4.16 M/UL (4.70-6.10); RED CELL DISTRIBUTION WIDTH 12.5 % (11.6-14.8); WHITE BLOOD COUNT 7.1 K/UL (4.8-10.8)
[2018-06-14 18:22] LABS: ANION GAP 9 mmol/L (5-15); BLOOD UREA NITROGEN 22 mg/dL (7-18); CALCIUM 9.1 MG/DL (8.5-10.1); CARBON DIOXIDE 24 MMOL/L (21-32); CHLORIDE 109 MMOL/L (98-107); POTASSIUM 3.2 MMOL/L (3.5-5.1); SODIUM 142 MMOL/L (136-145)
--- NOTE | 2018-06-14 18:44 | NUR ---
NURSE NOTES: Notified Dr. Praveen Downing 3.2
--- NOTE | 2018-06-14 19:24 | NUR ---
HAND-OFF: Report given to LIN Brian.
--- NOTE | 2018-06-14 19:36 | NUR ---
NURSE NOTES: Report taken from LIN Zhao. Patient is asleep, arousable to name. IV site c/d/i and patent flowing NS. Stool sample sent down to lab earlier, Cece stated that patients stool was bright red, will monitor if BM occurs at night. No signs of distress on room air. No pain unless using bathroom. Will monitor urinary retention. Bed in lowest position, call light within reach.
[2018-06-14 20:00] VITALS: BP 138/78
--- NOTE | 2018-06-14 20:37 | Cardiology Progress Note ---
Assessment/Plan Assessment/Plan 1. Diarrhea. 2. Dehydration. 3. Renal insufficiency. 4. Cardiomyopathy. 5. Coronary calcification with negative coronary ischemia. 6. Hyperlipidemia. 7. 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 he has had red bloody stool but the sampel he showed me is quite thinned his hemoglobin has been stable he is getting ivf started on empiric antibiotic this afternoon gi will see in am he has no fever wbc is fien conteinu ivf and k syupplement resuem acei Subjective Cardiovascular: Denies: chest pain, lightheadedness, palpitations Respiratory: Denies: shortness of breath Gastrointestinal/Abdominal: Reports: blood in stool, diarrhea Genitourinary: Denies: burning Objective Last 24 Hour Vital Signs Date Time Temp Pulse Resp B/P (MAP) Pulse Ox O2 Delivery O2 Flow Rate FiO2 06/14/18 15:53 98.0 61 16 141/77 (98) 99 06/14/18 11:30 98.3 66 14 139/74 (95) 96 06/14/18 09:00 Room Air 06/14/18 08:56 72 124/81 06/14/18 08:00 99.2 72 16 124/81 (95) 98 06/14/18 04:00 98.4 82 18 120/78 (92) 96 06/14/18 00:00 98.6 62 18 125/76 (92) 97 06/13/18 21:54 Room Air 06/13/18 21:20 97.7 61 19 131/77 (95) 98 06/13/18 21:05 97.8 66 14 98/54 100 Room Air 06/13/18 20:39 97.8 66 14 98/54 100 Room Air General Appearance: alert Neck: supple Cardiovascular: normal rate, regular rhythm Respiratory/Chest: lungs clear, normal breath sounds Abdomen: normal bowel sounds, non tender, soft Extremities: no swelling Intake and Output 06/13/18 06/14/18 18:59 06:59 Intake Total 1000 ml 600 ml Balance 1000 ml 600 ml Intake Oral 600 ml IV Total 1000 ml # Voids 2 Laboratory Tests Test 06/14/18 06:45 06/14/18 18:00 White Blood Count 5.5 K/UL (4.8-10.8) 7.1 K/UL (4.8-10.8) Red Blood Count 4.14 M/UL (4.70-6.10) L 4.16 M/UL (4.70-6.10) L Hemoglobin 11.7 G/DL (14.2-18.0) L 11.9 G/DL (14.2-18.0) L Hematocrit 35.8 % (42.0-52.0) L 35.9 % (42.0-52.0) L Mean Corpuscular Volume 86 FL (80-99) 86 FL (80-99) Mean Corpuscular Hemoglobin 28.2 PG (27.0-31.0) 28.6 PG (27.0-31.0) Mean Corpuscular Hemoglobin Concent 32.6 G/DL (32.0-36.0) 33.2 G/DL (32.0-36.0) Red Cell Distribution Width 13.1 % (11.6-14.8) 12.5 % (11.6-14.8) Platelet Count 149 K/UL (150-450) L 138 K/UL (150-450) L Mean Platelet Volume 7.1 FL (6.5-10.1) 7.1 FL (6.5-10.1) Neutrophils (%) (Auto) 53.0 % (45.0-75.0) 52.2 % (45.0-75.0) Lymphocytes (%) (Auto) 30.0 % (20.0-45.0) 31.9 % (20.0-45.0) Monocytes (%) (Auto) 10.3 % (1.0-10.0) H 8.5 % (1.0-10.0) Eosinophils (%) (Auto) 5.9 % (0.0-3.0) H 6.1 % (0.0-3.0) H Basophils (%) (Auto) 0.8 % (0.0-2.0) 1.2 % (0.0-2.0) Sodium Level 139 MMOL/L (136-145) 142 MMOL/L (136-145) Potassium Level 3.9 MMOL/L (3.5-5.1) 3.2 MMOL/L (3.5-5.1) L Chloride Level 109 MMOL/L (98-107) H 109 MMOL/L (98-107) H Carbon Dioxide Level 23 MMOL/L (21-32) 24 MMOL/L (21-32) Anion Gap 7 mmol/L (5-15) 9 mmol/L (5-15) Blood Urea Nitrogen 26 mg/dL (7-18) H 22 mg/dL (7-18) H Creatinine 1.2 MG/DL (0.55-1.30) 1.0 MG/DL (0.55-1.30) Estimat Glomerular Filtration Rate mL/min (>60) mL/min (>60) Glucose Level 89 MG/DL (74-106) 124 MG/DL (74-106) H Calcium Level 8.9 MG/DL (8.5-10.1) 9.1 MG/DL (8.5-10.1) Total Bilirubin 0.6 MG/DL (0.2-1.0) Aspartate Amino Transf (AST/SGOT) 15 U/L (15-37) Alanine Aminotransferase (ALT/SGPT) 20 U/L (12-78) Alkaline Phosphatase 83 U/L (46-116) Pro-B-Type Natriuretic Peptide 144 pg/mL (0-125) H Total Protein 5.8 G/DL (6.4-8.2) L Albumin 2.6 G/DL (3.4-5.0) L Globulin 3.2 g/dL Albumin/Globulin Ratio 0.8 (1.0-2.7) L Microbiology Date/Time Source Procedure Growth Status 06/13/18 17:53 Urine,Clean Catch Urine Culture - Preliminary NO GROWTH Resulted Alfonso Morton MD Jun 14, 2018 20:37
[2018-06-14] MEDS ORDERED: Atorvastatin 80mg tab ORAL SCH (21:00)
[2018-06-14] MEDS: Atorvastatin 80mg tab ORAL SCH (21:06)
[2018-06-14] MEDS: Ciprofloxacin 500mg tab ORAL SCH (21:06)
[2018-06-14] MEDS: metroNIDAZOLE 500mg tab ORAL SCH (22:02)
--- NOTE | 2018-06-14 22:15 | NUR ---
NURSE NOTES: Stool sample collected and sent to lab.
[2018-06-15] VITALS: BP 140/79
[2018-06-15] MEDS: metroNIDAZOLE 500mg tab ORAL SCH ×2 (06:08→14:06)
--- NOTE | 2018-06-15 07:18 | NUR ---
HAND-OFF: Report given to LIN Brice. Patient awake and alert in bed, VS stable.
--- NOTE | 2018-06-15 07:19 | NUR ---
NURSE NOTES: Received patient awake, alert, and oriented, lying comfortably in bed. IV sites at right forearm, infusing NS @ 50ml/hour. Bed at lowest level with 2 side rails up. Call light within reach. In no apparent distress at this time. Will continue to monitor.
[2018-06-15 07:23] LABS: EOSINOPHILS % (AUTO) 3.4 % (0.0-3.0); HEMATOCRIT 36.8 % (42.0-52.0); HEMOGLOBIN 12.2 G/DL (14.2-18.0); LYMPHOCYTES % (AUTO) 26.4 % (20.0-45.0); MEAN CORPUSCULAR VOLUME 86 FL (80-99); MONOCYTES % (AUTO) 9.2 % (1.0-10.0); PLATELET COUNT 148 K/UL (150-450); RED BLOOD COUNT 4.26 M/UL (4.70-6.10); WHITE BLOOD COUNT 6.6 K/UL (4.8-10.8)
[2018-06-15 07:54] LABS: % IRON SATURATION 20 % (15-50); IRON 51 ug/dL (50-175); TOTAL IRON BINDING CAPACITY 256 ug/dL (250-450)
[2018-06-15 08:00] VITALS: BP 155/82
[2018-06-15] MEDS ORDERED: Lisinopril 2.5mg tab ORAL SCH (09:00)
[2018-06-15] MEDS: Heparin 5000 units/ml inj SUBQ SCH (09:00)
[2018-06-15] MEDS: Ciprofloxacin 500mg tab ORAL SCH (09:08)
[2018-06-15] MEDS: Tamsulosin 0.4mg cap ORAL SCH (09:10)
[2018-06-15] MEDS: Metoprolol Succinate XL 25mg tab ORAL SCH (09:10)
[2018-06-15] MEDS: Acyclovir 200mg Cap ORAL SCH (09:10)
[2018-06-15] MEDS: Aspirin Baby 81mg ORAL SCH (09:10)
[2018-06-15] MEDS: Citalopram Hydrobromide 10mg Tab ORAL SCH (09:11)
[2018-06-15 12:00] VITALS: BP 152/86
--- NOTE | 2018-06-15 14:55 | General Progress Note ---
Assessment/Plan Assessment/Plan GI CONSULT Assessment - Recent diarrhea x 8 days - Recent BRBPR w/o significant drop in H&H - likely hemorrhoidal - CM, LBBB, s/p defib Recommendations - check all stool studies - advance diet - Outpatient EGD/Colon - d/c planning per PMD Thank you Lucinda Jerez MD Subjective Allergies: Coded Allergies: No Known Allergies (Unverified , 06/13/18) Objective Last 24 Hour Vital Signs Date Time Temp Pulse Resp B/P (MAP) Pulse Ox O2 Delivery O2 Flow Rate FiO2 06/15/18 12:00 98.4 71 18 152/86 (108) 97 06/15/18 09:11 140/79 06/15/18 09:10 68 140/79 06/15/18 09:00 Room Air 06/15/18 08:00 98.4 68 18 155/82 (106) 98 06/15/18 00:00 98.7 68 18 140/79 (99) 97 06/14/18 21:00 Room Air 06/14/18 20:00 98.4 65 18 138/78 (98) 98 06/14/18 15:53 98.0 61 16 141/77 (98) 99 Intake and Output 06/14/18 06/15/18 19:00 07:00 Intake Total 1600 ml 530 ml Output Total 600 ml 650 ml Balance 1000 ml -120 ml Intake Oral 1600 ml 480 ml IV Total 50 ml Output Urine Total 600 ml 650 ml Post Void Residual 0 ml Bladder Scan Volume Amount <10 ml # Voids 6 4 # Bowel Movements 1 4 Laboratory Tests 06/14/18 18:00: White Blood Count 7.1, Red Blood Count 4.16L, Hemoglobin 11.9L, Hematocrit 35.9L , Mean Corpuscular Volume 86, Mean Corpuscular Hemoglobin 28.6, Mean Corpuscular Hemoglobin Concent 33.2, Red Cell Distribution Width 12.5, Platelet Count 138L, Mean Platelet Volume 7.1, Neutrophils (%) (Auto) 52.2, Lymphocytes ( %) (Auto) 31.9, Monocytes (%) (Auto) 8.5, Eosinophils (%) (Auto) 6.1H, Basophils (%) (Auto) 1.2, Sodium Level 142, Potassium Level 3.2L, Chloride Level 109H, Carbon Dioxide Level 24, Anion Gap 9, Blood Urea Nitrogen 22H, Creatinine 1.0, Estimat Glomerular Filtration Rate , Glucose Level 124H, Calcium Level 9.1 06/15/18 06:00: White Blood Count 6.6, Red Blood Count 4.26L, Hemoglobin 12.2L, Hematocrit 36.8L , Mean Corpuscular Volume 86, Mean Corpuscular Hemoglobin 28.6, Mean Corpuscular Hemoglobin Concent 33.1, Red Cell Distribution Width 13.0, Platelet Count 148L, Mean Platelet Volume 7.3, Neutrophils (%) (Auto) 60.0, Lymphocytes ( %) (Auto) 26.4, Monocytes (%) (Auto) 9.2, Eosinophils (%) (Auto) 3.4H, Basophils (%) (Auto) 1.0, Iron Level 51, Total Iron Binding Capacity 256, Percent Iron Saturation 20, Unsaturated Iron Binding 205 Height (Feet): 5 Height (Inches): 10.00 Weight (Pounds): 186 Lucinda Jerez MD Jun 15, 2018 14:55
--- NOTE | 2018-06-15 15:30 | NUR ---
NURSE NOTES: Patient discharged. IV and ID band removed. Belongings accounted for. Discharge instructions given, discussed and patient verbalized understanding. Escorted from facility by personnel without incident or injury.
--- NOTE | 2018-06-16 01:16 | Consultation ---
DATE OF CONSULTATION: 06/15/2018 GASTROENTEROLOGY CONSULTATION CONSULTING PHYSICIAN: Lucinda Jerez M.D. REFERRING PHYSICIAN: Alfonso Morton M.D. CHIEF COMPLAINT: I was asked to see this patient by Dr. Alfonso Morton for evaluation of hematochezia. HISTORY OF PRESENT ILLNESS: The patient is a pleasant 73-year-old white man with a history of cardiomyopathy, who comes into the hospital with a history of diarrhea and bouts of hematochezia. The patient is describing bright red blood per rectum and sometimes dark. He has no abdominal pain, nausea, or vomiting. He goes to bathroom four times a day. Stools for C. diff., cultures have been sent and they are negative. He has had no ill contacts and no pets and no travel. He gets colonoscopy every 5 years by a die designer apprentice in the [place] and the next one is due this Month. PAST MEDICAL HISTORY: History of left bundle-branch block, cardiomyopathy, coronary artery disease, history of negative ischemic evaluation, history of intracardiac defibrillator implantation, history of back pain, hemorrhoids, kidney lesions, hay fever, appendectomy. ALLERGIES: Coreg, caused her rash on face. MEDICATIONS: See chart. FAMILY HISTORY: Noncontributory. SOCIAL HISTORY: The patient quit smoking 30 years ago but smoked for about 10 years. He drinks intermittently and uses marijuana intermittently. He is single. REVIEW OF SYSTEMS: Otherwise negative. PHYSICAL EXAMINATION: GENERAL: A pleasant, elderly white man, seen in his room. HEENT: Normocephalic and atraumatic. Sclerae anicteric. Oropharynx clear. NECK: Supple. CHEST: Clear to auscultation. CARDIOVASCULAR: Regular rhythm and rate. ABDOMEN: Soft. Good bowel sounds. EXTREMITIES: No edema. RECTAL: Exam externally showed no lesions. LABORATORY DATA: Noted. ASSESSMENT: This patient presents with diarrhea c/w minor transient infection. Stools will be sent for cultures, ova and parasite, and evaluated. Hematochezia is minor as he has not dropped his blood level significantly. It appears likely to be hemorrhoidal and can be investigated with colonoscopy either as an inpatient or shortly after discharge as an outpatient. The indications, risks, alternatives, and possible complications of the colonoscopy were explained to the patient and an informed consent was obtained. RECOMMENDATIONS: 1. Advance diet. 2. Monitor blood test and C. diff. 3. Discharge planning. 4. Colonoscopy to follow up shortly. Thank you for asking me to participate in the care of this patient. Lucinda Jerez M.D. DR: LINDA JOB#: [id number] CC: STEFFANIE
--- NOTE | 2018-06-16 15:17 | Discharge Summary ---
Discharge Summary Discharge Summary _ DATE OF ADMISSION: 06/13/2018 DATE OF DISCHARGE: 06/15/2018 DISCHARGED BY: Dr. Morton REASON FOR ADMISSION: 73 years old male with past medical history of left bundle branch conduction defect with intracardiac defibrillator placement, hyperlipidemia, cardiomyopathy, coronary disease with calcium score of 710 with negative ischemia evaluation, defibrillator back pain , hemorrhoids , kidney lesion , hepatitis B 25 years ago, status post appendectomy, presented to the emergency room for evaluation . According to patient 7-8 days prior to presentation to ED , he developed flulike symptoms associated with a lot of nausea and few episodes of vomiting . Subsequently he developed diarrhea, and reported weakness and dizziness. When he got up, he had to hold onto objects. He had two near syncopal episodes, but otherwise never passed out. He reported generalized weakness. He was unable to see his primary care provider and came to emergency room for evaluation. He denied chest pain ,shortness of breath ,paroxysmal nocturnal dyspnea , orthopnea ,palpitation. Upon evaluation vital signs were stable. Troponin was negative. EKG revealed normal sinus rhythm , no acute ischemic changes Laboratory workup revealed no leukocytosis, stable hemoglobin 13.5. Chemistry demonstrated hypokalemia with potassium 2.9. BUN 33, creatinine 1.9. Glucose 108. LFT stable. Urinalysis revealed evidence of possible UTI. Patient was admitted for further management. CONSULTANTS: GI specialist dr. Verdugo [facility] COURSE: Patient admitted to medical surgical floor. Patient started on IV hydration and empiric antibiotics . Renal parameters and electrolytes were closely monitored and electrolytes / potassium -corrected as needed. Nephrotoxins were avoided. BUN from initial 33 down to 22 and creatinine of 1.9 down to 1.0. Anemia workup revealed stable iron. Hemoglobin and hematocrit were closely monitored from initial 14.5 down to 12.2 upon discharge. GI specialist seen and evaluated patient due to reported hematochezia. Hemoglobin and hematocrit did not drop significantly. Per GI specialist, it appeared to be hemorrhoidal and can be investigated with colonoscopy either inpatient or shortly after discharge as outpatient. The indications, risks, alternatives and possible complications of colonoscopy were explained to the patient ,who expressed desire to do it as outpatient. Diet was advanced as tolerated . Patient was able to tolerate diet. Stool for C. difficile was negative. Urine culture revealed mixed gram-positive organism. Antibitoics discontineud. Patient was stable for discharge home. FINAL DIAGNOSES: Diarrhea Dehydration Hematochezia Renal insufficiency/XIN -probably due to dehdyartion -resolved Cardiomyopathy Coronary calcification with negative coronary ischemia Hyperlipidemia Left bundle branch conduction defect with intracardiac defibrillator placement DISCHARGE MEDICATIONS: See Medication Reconciliation list. DISCHARGE INSTRUCTIONS: Patient was discharged home . Follow up with primary care provider in one week. I have been assigned to dictate discharge summary for this account. I was not involved in the patient's management. Claudia Green NP Jun 16, 2018 15:17
== END 2018-06-15 15:20 | disposition home or self-care (01) | DRG 641 ==
LOC: EMR 19:00 → 3E 19:15 → EDBEDREQ 20:47
DX: E86.0 Dehydration (principal); I42.9 Cardiomyopathy, unspecified; N17.9 Acute kidney failure, unspecified; K64.9 Unspecified hemorrhoids; I25.10 Atherosclerotic heart disease of native coronary artery without angina pectoris; E78.5 Hyperlipidemia, unspecified; I44.7 Left bundle-branch block, unspecified; Z95.810 Presence of automatic (implantable) cardiac defibrillator; Z86.19 Personal history of other infectious and parasitic diseases; R19.7 Diarrhea, unspecified; I25.84 Coronary atherosclerosis due to calcified coronary lesion; Z88.8 Allergy status to other drugs, medicaments and biological substances; Z87.891 Personal history of nicotine dependence; E87.6 Hypokalemia
CPT/HCPCS: 36415; 80048; 80053; 81003; 82962; 83540; 83550; 83690; 83880; 84484; 85025; 87045; 87081; 87086; 87324; 93005; 96360; 96361; 99285; J8499

== ENCOUNTER 2020-05-12 14:18 | Inpatient (IN) | payer MEDICARE ==
[~2020-05-12] VITALS: Ht 177.8 cm; Wt 73.5 kg
[~2020-05-12 14:18] MED LIST changes: +CITALOPRAM10 MG/5 M1 ORAL; +LIPITOR80 MG ORAL; +LISINOPRIL5 MG ORAL; +METOPROLOL SUCC25 MG ORAL; +OMEGA ESSENTIA240 ML PO; +UNOBMED
[2020-05-12 15:06] LABS: HEMATOCRIT 38.2 % (42.0-52.0); HEMOGLOBIN 12.5 G/DL (14.2-18.0); MEAN CORPUSCULAR VOLUME 89 FL (80-99); PLATELET COUNT 94 K/UL (150-450); RED BLOOD COUNT 4.31 M/UL (4.70-6.10); RED CELL DISTRIBUTION WIDTH 14.8 % (11.6-14.8); WHITE BLOOD COUNT 10.5 K/UL (4.8-10.8)
--- NOTE | 2020-05-12 15:26 | Emergency Room Report ---
History of Present Illness General Chief Complaint: General Complaint Source: Patient Present Illness HPI 75-year-old male history of BPH, hypertension, presents from his doctor's office, patient with XIN no known aggravating alleviating factors severity is moderate, constant no fevers no chills no chest pain or shortness of breath patient presents for evaluation treatment Allergies: Coded Allergies: No Known Allergies (Unverified , 06/13/18) COVID-19 Screening Contact w/high risk pt: No Experienced COVID-19 symptoms?: No COVID-19 Testing performed OPHTHALMIC NURSE: No Patient History Past Medical History: see triage record Reviewed Nursing Documentation: PMH: Agreed; PSxH: Agreed Nursing Documentation-PMH Past Medical History: No History, Except For Hx Cardiac Problems: Yes Hx Pacemaker: Yes Hx Cancer: No Hx Gastrointestinal Problems: Yes - GERD Hx Neurological Problems: No Review of Systems All Other Systems: negative except mentioned in HPI Physical Exam Vital Signs Date Time Temp Pulse Resp B/P (MAP) Pulse Ox O2 Delivery O2 Flow Rate FiO2 05/12/20 14:22 99.0 124 20 125/90 (102) 98 Room Air Sp02 EP Interpretation: reviewed, normal General Appearance: well appearing, no apparent distress, alert Head: normocephalic, atraumatic Eyes: bilateral eye PERRL, bilateral eye EOMI ENT: uvula midline, moist mucus membranes Neck: supple, thyroid normal, supple/symm/no masses Respiratory: lungs clear, no respiratory distress, no retraction, no accessory muscle use Cardiovascular #1: normal peripheral pulses, regular rate, rhythm, no edema, no gallop, no murmur Gastrointestinal: non tender, no guarding, no rebound, distended - Suprapubic fullness Musculoskeletal: normal inspection Neurologic: alert, oriented x3 Psychiatric: mood/affect normal Skin: no rash, warm/dry Medical Decision Making Diagnostic Impression: Primary Impression: XIN (acute kidney injury) Additional Impression: Urinary retention ER Course 75-year-old male history of BPH presents with XIN patient found to have postobstructive XIN patient had a Vazquez inserted with greater than 1 L of urine obtained patient will be admitted to Dr. Juarez for continued management of his XIN Laboratory Tests Test 05/12/20 14:50 05/12/20 15:38 05/12/20 16:07 White Blood Count 10.5 K/UL (4.8-10.8) Red Blood Count 4.31 M/UL (4.70-6.10) L Hemoglobin 12.5 G/DL (14.2-18.0) L Hematocrit 38.2 % (42.0-52.0) L Mean Corpuscular Volume 89 FL (80-99) Mean Corpuscular Hemoglobin 28.9 PG (27.0-31.0) Mean Corpuscular Hemoglobin Concent 32.6 G/DL (32.0-36.0) Red Cell Distribution Width 14.8 % (11.6-14.8) Platelet Count 94 K/UL (150-450) L Mean Platelet Volume 9.6 FL (6.5-10.1) Neutrophils (%) (Auto) % (45.0-75.0) Lymphocytes (%) (Auto) % (20.0-45.0) Monocytes (%) (Auto) % (1.0-10.0) Eosinophils (%) (Auto) % (0.0-3.0) Basophils (%) (Auto) % (0.0-2.0) Differential Total Cells Counted 100 Neutrophils % (Manual) 73 % (45-75) Lymphocytes % (Manual) 17 % (20-45) L Monocytes % (Manual) 7 % (1-10) Eosinophils % (Manual) 2 % (0-3) Basophils % (Manual) 1 % (0-2) Band Neutrophils 0 % (0-8) Platelet Estimate Decreased L Platelet Morphology Normal Polychromasia 1+ Anisocytosis 1+ Sodium Level 136 MMOL/L (136-145) Potassium Level 5.7 MMOL/L (3.5-5.1) H Chloride Level 101 MMOL/L (98-107) Carbon Dioxide Level 18 MMOL/L (21-32) L Anion Gap 17 mmol/L (5-15) H Blood Urea Nitrogen 129 mg/dL (7-18) H Creatinine 16.0 MG/DL (0.55-1.30) H Estimated Glomerular Filtration Rate 3.0 mL/min (>60) Glucose Level 120 MG/DL (74-106) H Calcium Level 9.7 MG/DL (8.5-10.1) Total Bilirubin 0.5 MG/DL (0.2-1.0) Aspartate Amino Transferase (AST) 11 U/L (15-37) L Alanine Aminotransferase (ALT) 11 U/L (12-78) L Alkaline Phosphatase 100 U/L (46-116) Total Protein 7.7 G/DL (6.4-8.2) Albumin 3.4 G/DL (3.4-5.0) Globulin 4.3 g/dL Albumin/Globulin Ratio 0.8 (1.0-2.7) L Urine Color Pale yellow Urine Appearance Clear Urine pH 5 (4.5-8.0) Urine Specific Bronson 1.010 (1.005-1.035) Urine Protein Negative (NEGATIVE) Urine Glucose (UA) Negative (NEGATIVE) Urine Ketones Negative (NEGATIVE) Urine Blood 4+ (NEGATIVE) H Urine Nitrite Negative (NEGATIVE) Urine Bilirubin Negative (NEGATIVE) Urine Urobilinogen Normal MG/DL (0.0-1.0) Urine Leukocyte Esterase Negative (NEGATIVE) Urine RBC 2-4 /HPF (0 - 0) H Urine WBC 0-2 /HPF (0 - 0) Urine Squamous Epithelial Cells Occasional /LPF Urine Bacteria None /HPF (NONE) Urine Osmolality Pending Urine Random Total Protein Pending Urine Random Sodium Pending Urine Random Phosphorus Pending Urine Creatinine 115.6 MG/DL (30.0-125.0) Urine Potassium Timed Pending POC Whole Blood Glucose 105 MG/DL (74-106) EKG Diagnostic Results Troponin ordered: No EKG Time: 15:01 EP Interpretation: A sensed V paced, rate 110, no acute ST elevations, normal axis Rhythm Strip Diag. Results Rhythm Strip Time: 16:05 EP Interpretation: yes Rate: 106 Rhythm: other - Atrial paced Last Vital Signs Date Time Temp Pulse Resp B/P (MAP) Pulse Ox O2 Delivery O2 Flow Rate FiO2 05/12/20 14:22 99.0 124 20 125/90 (102) 98 Room Air Disposition: ADMITTED INPATIENT Condition: Stable Referrals: Sathish Thomson MD (PCP) Nicholas Forbes MD May 12, 2020 15:26
[2020-05-12 15:45] LABS: CALCIUM 9.7 MG/DL (8.5-10.1); POTASSIUM 5.7 MMOL/L (3.5-5.1)
[2020-05-12 15:51] VITALS: BP 136/89
[2020-05-12 15:51] LABS: ALBUMIN 3.4 G/DL (3.4-5.0); ALBUMIN/GLOBULIN RATIO 0.8 (1.0-2.7); BILIRUBIN,TOTAL 0.5 MG/DL (0.2-1.0)
[2020-05-12 15:54] LABS: APPEARANCE,URINE CLEAR; BILIRUBIN, URINE NEGATIVE (NEGATIVE); COLOR,URINE PALE YELLOW; GLUCOSE, URINE (UA) NEGATIVE (NEGATIVE); KETONES,URINE NEGATIVE (NEGATIVE); LEUKOCYTE ESTERASE ,URINE NEGATIVE (NEGATIVE); NITRITE,URINE NEGATIVE (NEGATIVE); PH,URINE 5 (4.5-8.0); PROTEIN,URINE NEGATIVE (NEGATIVE); UROBILINOGEN,URINE NORMAL MG/DL (0.0-1.0)
--- NOTE | 2020-05-12 17:06 | NUR ---
Phone # Srini [phone]
--- NOTE | 2020-05-12 17:22 | NUR ---
GIVE REPORT TO GRACIE CEBALLOS
[2020-05-12 17:23] VITALS: BP 121/95
--- NOTE | 2020-05-12 18:18 | Diagnostic Imaging Report ---
EXAM: US Retroperitoneal Limited, Renal CLINICAL HISTORY: PAIN TECHNIQUE: Real-time limited ultrasound of the retroperitoneum with image documentation. COMPARISON: 06/30/2016. 06/07/2016. FINDINGS: Right kidney: The right kidney measures 10.9 x 5.7 x 5.7 cm. Mild to moderate bilateral hydronephrosis. No stones. Left kidney: The left kidney measures 10.5 x 5.9 x 4.9 cm. 2 cm left renal cyst similar to that noted on the previous CT study of 06/07/2016. Bladder: Vazquez catheter within the bladder. Other findings: Enlarged prostate gland. IMPRESSION: 1. Bilateral hydronephrosis of uncertain etiology. 2. Left renal cyst, similar to that noted on the previous CT study of 05/30/2016. 3. Enlarged prostate gland. 4. CT imaging of the abdomen and pelvis is advised to follow-up to further evaluate hydronephrosis of kidneys bilaterally.
--- NOTE | 2020-05-12 18:26 | Diagnostic Imaging Report ---
EXAM: CT Head Without Intravenous Contrast CLINICAL HISTORY: FALL TECHNIQUE: Axial computed tomography images of the head/brain without intravenous contrast. CTDI is 53.40 mGy and DLP is 1072.20 mGy-cm. One or more of the following dose reduction techniques were used: automated exposure control, adjustment of the mA and/or kV according to patient size, use of iterative reconstruction technique. COMPARISON: No previous studies. FINDINGS: Brain: Small vessel disease of aging. No abnormal extra-axial collection. No hemorrhage. Ventricles: There is prominence of the ventricular system, cortical sulci, basilar cisterns, compatible with age related atrophy. Bones/joints: Calvarium is within normal limits. No acute fracture. Soft tissues: Unremarkable. Sinuses: Visualized sinuses are unremarkable. Mastoid air cells: Mastoid air cells are well pneumatized. Other findings: Only axial and coronal images were provided. IMPRESSION: 1. Age-related atrophy and small vessel disease of aging. 2. If there is concern for etiology such as early acute lacunar infarcts, magnetic resonance imaging of the brain with diffusion-weighted sequences should be performed for follow-up.
[2020-05-12 18:30] VITALS: BP 148/92
--- NOTE | 2020-05-12 18:30 | NUR ---
NURSE NOTES: Maria Eugenia RN brought patient by bed in stable condition. Alert and oriented x3 and forgetful. Skin intact and dry. IV dressing intact and dry. Belonging checked. Vazquez catheter patent and draining well. Hematuria noted. Bed lowest position and side rails up. Call light within reach. Will continue to monitor.
--- NOTE | 2020-05-12 19:30 | NUR ---
NURSE HAND-OFF: Important Events on Shift:new admission Patient Status: Stable Diet: Regular Pending Orders: N/A Pending Results/Labs:N/A Pending MD notification:N/A Latest Vital Signs: Temperature 98.0 , Pulse 98 , B/P 148 /92 , Respiratory Rate 20 , O2 SAT 96 , Room Air, O2 Flow Rate . Vital Sign Comment: Stable Latest Lewis Fall Score: 20 Fall Risk: Safety Measures: Call light , Bed Alarm , Side Rails , Bed position . Fall Precautions: Report given to Jose Ramon CEBALLOS. Patient in stable condition.
--- NOTE | 2020-05-12 19:36 | NUR ---
NURSE NOTES: Spoke to and received admission order. Order read back and carried out.
--- NOTE | 2020-05-12 19:37 | NUR ---
NURSE NOTES: Received patient in no apparent distress. A&OX4, forgetful. IV site patent and intact. Vazquez draining well by gravity, nereyda color urine noted. Bed in lowest position. Call light within reach. Will continue to monitor.
[2020-05-12 20:00] VITALS: BP 126/78
[2020-05-12] MEDS: Heparin 5000 units/ml inj SUBQ SCH (20:44)
--- NOTE | 2020-05-12 21:14 | Consultation ---
DATE OF CONSULTATION: 05/12/2020 CONSULTING PHYSICIAN: Ethan Guerra MD REFERRING PHYSICIAN: Perry Juarez MD and Sathish Thomson MD REASON FOR CONSULTATION: For evaluation of urinary retention, acute kidney injury. HISTORY OF PRESENT ILLNESS: This is a 75-year-old male. He is known to me from office evaluations. I had seen the patient back in 2017 because of an incidental right-sided renal mass and he was also noted to have hypospadias and distal urethral stricture and BPH disease. He at that time was on Hytrin 5 mg and also recommended finasteride. He had a small renal mass and he had this ablated at [facility] back in 2017. 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 He unfortunately has not followed up with me since then. He was noted to be in acute kidney injury and was noted to be in urinary retention. Vazquez was placed with only a liter of residual urine. He was also noted to have hydronephrosis. Urology evaluation is requested. PAST MEDICAL HISTORY: Significant for above, also history of coronary artery disease, GERD. PAST SURGICAL HISTORY: Unknown. MEDICATIONS: Current medication list here in the hospital, the patient is on finasteride. He is on tamsulosin. He is on heparin. ALLERGIES: No known drug allergies. SOCIAL HISTORY: Patient is currently a nonsmoker. REVIEW OF SYSTEMS: As above. FAMILY HISTORY: Noncontributory. PHYSICAL EXAMINATION: VITAL SIGNS: His temperature is 98, blood pressure is 140/92, pulse 98, respirations 20. Vazquez is in place. LABORATORY DATA: UA shows 4+ blood, 2 to 4 rbc's. White count is 10.5, hemoglobin 12.5, platelets are 94. BUN is 129, creatinine is 6.0. His baseline creatinine is unknown to me, but in the past it was normal. DIAGNOSTIC IMAGING STUDIES: The patient had a renal ultrasound that showed evidence of bilateral hydronephrosis. There was also mention of a left renal cyst and enlarged prostate. IMPRESSION: 1. Renal insufficiency with acute kidney injury. Possible underlying chronic kidney disease. 2. Urinary retention. 3. BPH. 4. Possible neurogenic bladder. 5. Hematuria. 6. Renal mass history. 7. Hydronephrosis. 8. Renal cyst. PLAN AND DISCUSSION: Again the patient is in severe acute kidney injury, which appears to be obstructive. He had significant residual urine and also bilateral hydronephrosis presumably secondary to bladder distention. At this time, we will recommend to keep the Vazquez catheter indwelling. His renal function will be monitored. He will be monitored for postobstructive diuresis. He is to continue Flomax and Proscar and he can have a repeat voiding trial once his renal function is stabilized. He will also need to have cystoscopy and can be done electively. He does have a history of a renal mass, which has been previously ablated and there was no mention of any masses on ultrasound. This will be monitored also. I will follow the patient. Any other recommendations will be forthcoming. Thank you for this consultation. Ethan Guerra M.D. DR: JOSEPH JOB#: [id number] CC: MD PERRY Nicole M.D. ; FAX#: [phone]
--- NOTE | 2020-05-12 22:01 | Cardiology Progress Note ---
Assessment/Plan Assessment/Plan pt seen adnd examined inthe er chart reviewed full note to follow [id number] Objective Last 24 Hour Vital Signs Date Time Temp Pulse Resp B/P (MAP) Pulse Ox O2 Delivery O2 Flow Rate FiO2 05/12/20 18:30 98.0 98 20 148/92 (110) 96 05/12/20 17:23 98.0 100 18 121/95 100 Room Air 05/12/20 15:51 97.0 101 19 136/89 98 Room Air 05/12/20 15:51 101 19 Room Air 05/12/20 14:22 99.0 124 20 125/90 (102) 98 Room Air Laboratory Tests Test 05/12/20 14:50 05/12/20 15:38 05/12/20 16:07 White Blood Count 10.5 K/UL (4.8-10.8) Red Blood Count 4.31 M/UL (4.70-6.10) L Hemoglobin 12.5 G/DL (14.2-18.0) L Hematocrit 38.2 % (42.0-52.0) L Mean Corpuscular Volume 89 FL (80-99) Mean Corpuscular Hemoglobin 28.9 PG (27.0-31.0) Mean Corpuscular Hemoglobin Concent 32.6 G/DL (32.0-36.0) Red Cell Distribution Width 14.8 % (11.6-14.8) Platelet Count 94 K/UL (150-450) L Mean Platelet Volume 9.6 FL (6.5-10.1) Neutrophils (%) (Auto) % (45.0-75.0) Lymphocytes (%) (Auto) % (20.0-45.0) Monocytes (%) (Auto) % (1.0-10.0) Eosinophils (%) (Auto) % (0.0-3.0) Basophils (%) (Auto) % (0.0-2.0) Differential Total Cells Counted 100 Neutrophils % (Manual) 73 % (45-75) Lymphocytes % (Manual) 17 % (20-45) L Monocytes % (Manual) 7 % (1-10) Eosinophils % (Manual) 2 % (0-3) Basophils % (Manual) 1 % (0-2) Band Neutrophils 0 % (0-8) Platelet Estimate Decreased L Platelet Morphology Normal Polychromasia 1+ Anisocytosis 1+ Sodium Level 136 MMOL/L (136-145) Potassium Level 5.7 MMOL/L (3.5-5.1) H Chloride Level 101 MMOL/L (98-107) Carbon Dioxide Level 18 MMOL/L (21-32) L Anion Gap 17 mmol/L (5-15) H Blood Urea Nitrogen 129 mg/dL (7-18) H Creatinine 16.0 MG/DL (0.55-1.30) H Estimat Glomerular Filtration Rate 3.0 mL/min (>60) Glucose Level 120 MG/DL (74-106) H Calcium Level 9.7 MG/DL (8.5-10.1) Total Bilirubin 0.5 MG/DL (0.2-1.0) Aspartate Amino Transf (AST/SGOT) 11 U/L (15-37) L Alanine Aminotransferase (ALT/SGPT) 11 U/L (12-78) L Alkaline Phosphatase 100 U/L (46-116) Total Protein 7.7 G/DL (6.4-8.2) Albumin 3.4 G/DL (3.4-5.0) Globulin 4.3 g/dL Albumin/Globulin Ratio 0.8 (1.0-2.7) L Urine Color Pale yellow Urine Appearance Clear Urine pH 5 (4.5-8.0) Urine Specific [place] 1.010 (1.005-1.035) Urine Protein Negative (NEGATIVE) Urine Glucose (UA) Negative (NEGATIVE) Urine Ketones Negative (NEGATIVE) Urine Blood 4+ (NEGATIVE) H Urine Nitrite Negative (NEGATIVE) Urine Bilirubin Negative (NEGATIVE) Urine Urobilinogen Normal MG/DL (0.0-1.0) Urine Leukocyte Esterase Negative (NEGATIVE) Urine RBC 2-4 /HPF (0 - 0) H Urine WBC 0-2 /HPF (0 - 0) Urine Squamous Epithelial Cells Occasional /LPF Urine Bacteria None /HPF (NONE) Urine Osmolality 299 mOsm/kg (429-449) L Urine Random Total Protein 6 MG/DL (< 11.9) Urine Random Sodium 39 mmol/L (20-110) Urine Random Phosphorus Pending Urine Creatinine 115.6 MG/DL (30.0-125.0) Urine Potassium Timed 19 mmol/L (12-62) POC Whole Blood Glucose 105 MG/DL (74-106) Alfonso Morton MD May 12, 2020 22:01
[2020-05-12] MEDS ORDERED: FLOMAX0.4 MG ORAL (23:07)
[2020-05-12] MEDS ORDERED: DOCUSATE SODIU100 M2 ORAL (23:10)
[2020-05-12] MEDS ORDERED: METOCLOPRA10 MG/10 M ORAL ×2 (23:12→23:24)
[2020-05-12] MEDS ORDERED: CITALOPRAM20 MG/10 M ORAL (23:14)
[2020-05-12] MEDS ORDERED: CITALOPRAM HBR20 M1 ORAL (23:19)
[2020-05-12] MEDS ORDERED: REGLAN10 M1 ORAL (23:26)
[2020-05-13] VITALS: BP 108/71
--- NOTE | 2020-05-13 00:44 | History and Physical Report ---
DATE OF ADMISSION: 05/12/2020 CHIEF COMPLAINT AND REASON FOR HOSPITALIZATION: The patient is admitted for acute kidney injury. HISTORY OF PRESENT ILLNESS: The patient is followed by Dr. Sathish Thomson and he recently came to the office and had a creatinine of 13, and Dr. Thomson referred him to me for admission. The patient has no prior history of kidney disease and had creatinine of about 1 in 2018. He has history of chronic systolic congestive heart failure and had an ICD bivalve placed in 08/2017, at [facility]. He says he has been voiding generally pretty good, but had a nocturia about 2 or 3 times per night. He came to the emergency room and was found to have urinary retention. A Vazquez was placed and over a liter came out immediately. He has some hydronephrosis on ultrasound. There is no history of malignancy or prior episodes of urinary retention. He has had a nonischemic cardiomyopathy, class III heart failure despite optimal management prior to his ICD placement. HABITS: He is a former smoker, quit about 33 years ago. No alcohol or drugs. SOCIAL HISTORY: He is retired. He worked as a . He lives with his domestic partner, who is a male. HOME MEDICATIONS: Reviewed on the computer, but not verified if they are taken currently. They include Zovirax, aspirin, atorvastatin, citalopram, ibuprofen p.r.n., lisinopril, lovastatin, metoprolol, omega-3, omeprazole, Proctofoam, temazepam, tramadol. Again, this is incomplete and not well known. ALLERGIES: None known. SURGERIES: ICD as above. SYSTEM REVIEW: HEAD, EYES, EARS, NOSE, THROAT: Vision and hearing is good. ENDOCRINE: No known diabetes or thyroid disease. PULMONARY: No asthma, TB, or chronic cough. CARDIAC: See history of present illness. He has history of hypertension. GASTROINTESTINAL: No GI bleeding, chronic abdominal pain, hematochezia, or melena. GENITOURINARY: See history of present illness. NEUROLOGIC: No CVA, syncope, or seizures. PHYSICAL EXAMINATION: GENERAL: The patient is alert man seen in the emergency department. VITAL SIGNS: Temperature 98, pulse 100, respirations 18, blood pressure 121/95. HEAD, EYES, EARS, NOSE, THROAT: Sclerae are nonicteric. Ocular motions intact in all directions. Oral mucosa moist. NECK: No adenopathy. LUNGS: Clear. HEART: Regular rhythm. I hear no murmur or rub. ABDOMEN: Soft without organomegaly or masses. There is mild suprapubic tenderness. GENITOURINARY: A Vazquez catheter is in place. EXTREMITIES: No edema, cyanosis, or clubbing. NEUROLOGIC: He is alert and oriented. Cranial nerves are intact. PERTINENT LABORATORY DATA: Show white count of 10.5, hemoglobin 12.5. Sodium 136, potassium 5.7, chloride 101, CO2 18, BUN 129, and creatinine is 16 with glucose . IMPRESSION: 1. Acute kidney injury secondary to urinary retention. 2. Hydronephrosis secondary to above. 3. Benign prostatic hypertrophy. 4. History of cardiomyopathy and nonischemic systolic congestive heart failure. 5. History of hypertension with history of ibuprofen taking, which might affect his kidney function, but he says he rarely takes that. PLAN: The patient will be hydrated. Continue Vazquez drainage. I will place him on Flomax and Proscar, get Urology consultation, and monitor closely his cardiac status. Marvin Juarez M.D. : Jamie JOB#: [id number] CC:
[2020-05-13 04:00] VITALS: BP 107/83
[2020-05-13 07:27] LABS: MEAN CORPUSCULAR VOLUME 87 FL (80-99); PLATELET COUNT 94 K/UL (150-450); RED BLOOD COUNT 4.36 M/UL (4.70-6.10); RED CELL DISTRIBUTION WIDTH 14.6 % (11.6-14.8); WHITE BLOOD COUNT 9.1 K/UL (4.8-10.8)
--- NOTE | 2020-05-13 07:30 | NUR ---
NURSE NOTES: Pt lying in bed w/bed in lowest position and call light within reach. Pt A&Ox3, VSS, and in no apparent distress. IV site intact/asymptomatic w/IVF infusing; F/C patent/draining well; and skin intact. Will continue to monitor.
[2020-05-13 08:00] VITALS: BP 134/92
--- NOTE | 2020-05-13 08:01 | NUR ---
NURSE HAND-OFF: Important Events on Shift: Void well with Vazquez Patient Status: Diet: Regular Pending Orders: Pending Results/Labs: Pending MD notification: Latest Vital Signs: Temperature 97.8 , Pulse 105 , B/P 107 /83 , Respiratory Rate 16 , O2 SAT 96 , Room Air, O2 Flow Rate . Vital Sign Comment: Latest Lewis Fall Score: 85 Fall Risk: High Risk Safety Measures: Call light Within Reach, Bed Alarm Zone 1, Side Rails Side Rails x2, Bed position Low and Locked. Fall Precautions: Door Sign Patient Fall Education Report given to Keiry CEBALLOS.
--- NOTE | 2020-05-13 08:15 | Urology Progress Note ---
Assessment/Plan Assessment/Plan: 1. Renal insufficiency with acute kidney injury. Possible underlying chronic kidney disease. 2. Urinary retention. 3. BPH. 4. Possible neurogenic bladder. 5. Hematuria. 6. Renal mass history. 7. Hydronephrosis. 8. Renal cyst. monitor clinically maintain calero hand irrigated and do PRN monitor renal fxn flomax and proscar voiding trial later once renal fxn back to baseline cysto electively may need TURP at some point Subjective Allergies: Coded Allergies: No Known Allergies (Unverified , 06/13/18) Subjective all noted feels fair Objective Last 24 Hour Vital Signs Date Time Temp Pulse Resp B/P (MAP) Pulse Ox O2 Delivery O2 Flow Rate FiO2 05/13/20 04:00 97.8 105 16 107/83 (91) 96 05/13/20 00:00 97.9 104 16 108/71 (83) 96 05/12/20 23:41 Room Air 05/12/20 22:26 Room Air 05/12/20 20:00 97.8 102 20 126/78 (94) 97 05/12/20 18:30 98.0 98 20 148/92 (110) 96 05/12/20 17:23 98.0 100 18 121/95 100 Room Air 05/12/20 15:51 97.0 101 19 136/89 98 Room Air 05/12/20 15:51 101 19 Room Air 05/12/20 14:22 99.0 124 20 125/90 (102) 98 Room Air Intake and Output 05/12/20 05/13/20 19:00 07:00 Intake Total 2415 ml Output Total 2000 ml 3325 ml Balance -2000 ml -910 ml Intake Oral 840 ml IV Total 1575 ml Output Urine Total 2000 ml 3325 ml Current Medications Medications (Trade) Dose Ordered Sig/Damari Route PRN Reason Start Time Stop Time Status Last Admin Dose Admin Acetaminophen (Tylenol) 650 mg Q4H PRN ORAL For Pain 05/12/20 19:15 06/11/20 19:14 Finasteride (Proscar) 5 mg DAILY ORAL 05/13/20 09:00 08/11/20 08:59 Heparin Sodium (Porcine) (Heparin 5000 units/ml) 5,000 units EVERY 12 HOURS SUBQ 05/12/20 21:00 06/26/20 20:59 Sodium Chloride 1,000 ml @ 175 mls/hr Q5H43M IV 05/12/20 19:15 06/11/20 19:14 05/13/20 06:45 Tamsulosin HCl (Flomax) 0.4 mg BID ORAL 05/13/20 09:00 06/12/20 08:59 Laboratory Tests 05/12/20 14:50: White Blood Count 10.5, Red Blood Count 4.31L, Hemoglobin 12.5L, Hematocrit 38.2L, Mean Corpuscular Volume 89, Mean Corpuscular Hemoglobin 28.9, Mean Corpuscular Hemoglobin Concent 32.6, Red Cell Distribution Width 14.8, Platelet Count 94L, Mean Platelet Volume 9.6, Neutrophils (%) (Auto) , Lymphocytes (%) (Auto) , Monocytes (%) (Auto) , Eosinophils (%) (Auto) , Basophils (%) (Auto) , Differential Total Cells Counted 100, Neutrophils % (Manual) 73, Lymphocytes % (Manual) 17L, Monocytes % (Manual) 7, Eosinophils % (Manual) 2, Basophils % (Manual) 1, Band Neutrophils 0, Platelet Estimate DecreasedL, Platelet Morphology Normal, Polychromasia 1+, Anisocytosis 1+, Sodium Level 136, Potassium Level 5.7H, Chloride Level 101, Carbon Dioxide Level 18L, Anion Gap 17H, Blood Urea Nitrogen 129H, Creatinine 16.0H, Estimat Glomerular Filtration Rate 3.0, Glucose Level 120H, Calcium Level 9.7, Total Bilirubin 0.5, Aspartate Amino Transf (AST/SGOT) 11L, Alanine Aminotransferase (ALT/SGPT) 11L, Alkaline Phosphatase 100, Total Protein 7.7, Albumin 3.4, Globulin 4.3, Albumin/Globulin Ratio 0.8L 05/12/20 15:38: Urine Color Pale yellow, Urine Appearance Clear, Urine pH 5, Urine Specific [place] 1.010, Urine Protein Negative, Urine Glucose (UA) Negative, Urine Ketones Negative, Urine Blood 4+H, Urine Nitrite Negative, Urine Bilirubin Negative, Urine Urobilinogen Normal, Urine Leukocyte Esterase Negative, Urine RB C 2-4H, Urine WBC 0-2, Urine Squamous Epithelial Cells Occasional, Urine Bacteria None, Urine Osmolality 299L, Urine Random Total Protein 6, Urine Random Sodium 39, Urine Random Phosphorus [Pending], Urine Creatinine 115.6, Urine Potassium Timed 19 05/12/20 16:07: POC Whole Blood Glucose 105 05/13/20 05:28: White Blood Count 9.1, Red Blood Count 4.36L, Hemoglobin 12.0L, Hematocrit 38.0L , Mean Corpuscular Volume 87, Mean Corpuscular Hemoglobin 27.6, Mean Corpuscular Hemoglobin Concent 31.7L, Red Cell Distribution Width 14.6, Platelet Count 94L, Mean Platelet Volume 10.9H, Neutrophils (%) (Auto) , Lymphocytes (%) (Auto) , Monocytes (%) (Auto) , Eosinophils (%) (Auto) , Basophils (%) (Auto) , N eutrophils % (Manual) [Pending], Lymphocytes % (Manual) [Pending], Platelet Estimate [Pending], Platelet Morphology [Pending], Sodium Level [Pending], Potassium Level [Pending], Chloride Level [Pending], Carbon Dioxide Level [Pending], Blood Urea Nitrogen [Pending], Creatinine [Pending], Estimat Glomerular Filtration Rate [Pending], Glucose Level [Pending], Calcium Level [Pending], Total Bilirubin [Pending], Aspartate Amino Transf (AST/SGOT) [Pending], Alanine Aminotransferase (ALT/SGPT) [Pending], Alkaline Phosphatase [Pending], Total Protein [Pending], Albumin [Pending], Globulin [Pending], Uric Acid [Pending], Phosphorus Level [Pending], Magnesium Level [Pending], Total Creatine Kinase [Pending], Pro-B-Type Natriuretic Peptide [Pending], Prostate Specific Antigen [Pending] Height (Feet): 5 Height (Inches): 10.00 Weight (Pounds): 162 Objective exam stable calero indwelling, yellow/nereyda urine Ethan Guerra MD May 13, 2020 08:15
[2020-05-13 08:22] LABS: ALANINE AMINOTRANSFERASE 15 U/L (12-78); ALBUMIN 3.1 G/DL (3.4-5.0); ALBUMIN/GLOBULIN RATIO 0.7 (1.0-2.7); ALKALINE PHOSPHATASE 93 U/L (46-116); ANION GAP 12 mmol/L (5-15); ASPARTATE AMINO TRANSFERASE 13 U/L (15-37); BILIRUBIN,TOTAL 0.6 MG/DL (0.2-1.0); BLOOD UREA NITROGEN 66 mg/dL (7-18); CALCIUM 9.4 MG/DL (8.5-10.1); CARBON DIOXIDE 22 MMOL/L (21-32); CHLORIDE 109 MMOL/L (98-107); CREATINE KINASE 52 U/L (26-308); CREATININE 4.2 MG/DL (0.55-1.30); PHOSPHORUS 3.4 MG/DL (2.5-4.9); SODIUM 143 MMOL/L (136-145)
[2020-05-13] MEDS: Tamsulosin 0.4mg cap ORAL SCH ×2 (08:31→17:04)
[2020-05-13] MEDS: Heparin 5000 units/ml inj SUBQ SCH ×2 (08:32→21:06)
[2020-05-13 12:00] VITALS: BP 130/82
--- NOTE | 2020-05-13 12:56 | NUR ---
CASE MANAGEMENT:REVIEW 75 YR OLD MALE FROM HOME TO ER CC; SENT BY MD TO EVALUATE KIDNEY FUNCTION SI: ACUTE RENAL FAILURE. URINARY RETENTION 98.9 124 20 125/90 98% ON RA BUN+129 CR+16.0 PSA+15.43 IS: 1L NS BOLUS RENAL US RANDOM URINE FOR SODIUM, POTASSIUM AND PROTEIN : TO MED/SURG
[2020-05-13 16:00] VITALS: BP 130/96
[2020-05-13] MEDS ORDERED: LORazepam 0.5mg tab ORAL PRN (16:00)
[2020-05-13] MEDS: Citalopram Hydrobromide 10mg Tab ORAL SCH (17:03)
--- NOTE | 2020-05-13 19:25 | NUR ---
NURSE HAND-OFF: Important Events on Shift: Pt seen by Dr. Guerra and Dr. Juarez; pt's I&O's recorded Q4HR. Patient Status: Stable Diet: Regular (soft, easy chew) Pending Orders: None Pending Results/Labs: None Pending MD notification: None Latest Vital Signs: Temperature 97.6 , Pulse 116 , B/P 130 /96 , Respiratory Rate 20 , O2 SAT 97 , Room Air, O2 Flow Rate Vital Sign Comment: Stable, tachy Latest Lewis Fall Score: 85 Fall Risk: High Risk Safety Measures: Call light Within Reach, Bed Alarm Zone 1, Side Rails Side Rails x2, Bed position Low and Locked. Fall Precautions: Door Sign Patient Fall Education Report given to LIN Albright.
--- NOTE | 2020-05-13 19:30 | NUR ---
NURSE NOTES: Received patient in no apparent distress. A&OX2, forgetful. IV site patent and intact. Vazquez draining well by gravity, nereyda color urine noted. Bed in lowest position. Call light within reach. Will continue to monitor.
[2020-05-13 20:00] VITALS: BP 147/86
--- NOTE | 2020-05-13 20:00 | NUR ---
NURSE NOTES: Dr. Morton at bedside.
--- NOTE | 2020-05-13 20:09 | Cardiology Progress Note ---
Assessment/Plan Assessment/Plan obstructive uropathy arf elevated psa cm cad neg prior ischemia eval hs of injury to the chest wall with tenderness on the ribs off acei bp is elevated ct noted neg for bleed psa sig increased renal function improved greatly post Vazquez off acei to resume if and when ok with renal decrease statin dose rib seireis left sided Subjective Cardiovascular: Denies: chest pain - except chest wall soreness form his injury , lightheadedness Respiratory: Denies: SOB with excertion Gastrointestinal/Abdominal: Denies: abdominal pain Genitourinary: Denies: burning Objective Last 24 Hour Vital Signs Date Time Temp Pulse Resp B/P (MAP) Pulse Ox O2 Delivery O2 Flow Rate FiO2 05/13/20 16:00 97.6 116 20 130/96 (107) 97 05/13/20 12:00 97.1 98 19 130/82 (98) 99 05/13/20 09:00 Room Air 05/13/20 08:00 97.3 123 16 134/92 (106) 99 05/13/20 04:00 97.8 105 16 107/83 (91) 96 05/13/20 00:00 97.9 104 16 108/71 (83) 96 05/12/20 23:41 Room Air 05/12/20 22:26 Room Air General Appearance: no apparent distress, alert Neck: supple Cardiovascular: normal rate, regular rhythm Respiratory/Chest: lungs clear Abdomen: non tender, soft Extremities: no swelling Intake and Output 05/12/20 05/13/20 19:00 07:00 Intake Total 2415 ml Output Total 2000 ml 3325 ml Balance -2000 ml -910 ml Intake Oral 840 ml IV Total 1575 ml Output Urine Total 2000 ml 3325 ml Laboratory Tests Test 05/13/20 05:28 White Blood Count 9.1 K/UL (4.8-10.8) Red Blood Count 4.36 M/UL (4.70-6.10) L Hemoglobin 12.0 G/DL (14.2-18.0) L Hematocrit 38.0 % (42.0-52.0) L Mean Corpuscular Volume 87 FL (80-99) Mean Corpuscular Hemoglobin 27.6 PG (27.0-31.0) Mean Corpuscular Hemoglobin Concent 31.7 G/DL (32.0-36.0) L Red Cell Distribution Width 14.6 % (11.6-14.8) Platelet Count 94 K/UL (150-450) L Mean Platelet Volume 10.9 FL (6.5-10.1) H Neutrophils (%) (Auto) % (45.0-75.0) Lymphocytes (%) (Auto) % (20.0-45.0) Monocytes (%) (Auto) % (1.0-10.0) Eosinophils (%) (Auto) % (0.0-3.0) Basophils (%) (Auto) % (0.0-2.0) Differential Total Cells Counted 100 Neutrophils % (Manual) 83 % (45-75) H Lymphocytes % (Manual) 6 % (20-45) L Monocytes % (Manual) 10 % (1-10) Eosinophils % (Manual) 1 % (0-3) Basophils % (Manual) 0 % (0-2) Band Neutrophils 0 % (0-8) Platelet Estimate Decreased L Platelet Morphology Normal Hypochromasia 1+ Anisocytosis 1+ Sodium Level 143 MMOL/L (136-145) Potassium Level 5.0 MMOL/L (3.5-5.1) Chloride Level 109 MMOL/L (98-107) H Carbon Dioxide Level 22 MMOL/L (21-32) Anion Gap 12 mmol/L (5-15) Blood Urea Nitrogen 66 mg/dL (7-18) H Creatinine 4.2 MG/DL (0.55-1.30) #H Estimat Glomerular Filtration Rate 13.9 mL/min (>60) Glucose Level 115 MG/DL (74-106) H Uric Acid 7.7 MG/DL (2.6-7.2) H Calcium Level 9.4 MG/DL (8.5-10.1) Phosphorus Level 3.4 MG/DL (2.5-4.9) Magnesium Level 2.2 MG/DL (1.8-2.4) Total Bilirubin 0.6 MG/DL (0.2-1.0) Aspartate Amino Transf (AST/SGOT) 13 U/L (15-37) L Alanine Aminotransferase (ALT/SGPT) 15 U/L (12-78) Alkaline Phosphatase 93 U/L (46-116) Total Creatine Kinase 52 U/L (26-308) Pro-B-Type Natriuretic Peptide 585 pg/mL (0-125) H Total Protein 7.5 G/DL (6.4-8.2) Albumin 3.1 G/DL (3.4-5.0) L Globulin 4.4 g/dL Albumin/Globulin Ratio 0.7 (1.0-2.7) L Prostate Specific Antigen 15.43 ng/mL (0.13-4.0) H Microbiology Date/Time Source Procedure Growth Status 05/12/20 20:50 Indwelling Cath Urine Culture - Preliminary NO GROWTH Resulted Alfonso Morton MD May 13, 2020 20:09
--- NOTE | 2020-05-13 20:46 | General Progress Note ---
Subjective Constitutional: Reports: weakness HEENT: Reports: no symptoms Cardiovascular: Reports: no symptoms Respiratory: Reports: no symptoms Gastrointestinal/Abdominal: Reports: no symptoms Genitourinary: Reports: other - retention Neurologic/Psychiatric: Reports: no symptoms Endocrine: Reports: no symptoms Hematologic/Lymphatic: Reports: no symptoms Allergies: Coded Allergies: No Known Allergies (Unverified , 06/13/18) Objective Last 24 Hour Vital Signs Date Time Temp Pulse Resp B/P (MAP) Pulse Ox O2 Delivery O2 Flow Rate FiO2 05/13/20 16:00 97.6 116 20 130/96 (107) 97 05/13/20 12:00 97.1 98 19 130/82 (98) 99 05/13/20 09:00 Room Air 05/13/20 08:00 97.3 123 16 134/92 (106) 99 05/13/20 04:00 97.8 105 16 107/83 (91) 96 05/13/20 00:00 97.9 104 16 108/71 (83) 96 05/12/20 23:41 Room Air 05/12/20 22:26 Room Air Intake and Output 05/12/20 05/13/20 19:00 07:00 Intake Total 2415 ml Output Total 2000 ml 3325 ml Balance -2000 ml -910 ml Intake Oral 840 ml IV Total 1575 ml Output Urine Total 2000 ml 3325 ml Laboratory Tests 05/13/20 05:28: White Blood Count 9.1, Red Blood Count 4.36L, Hemoglobin 12.0L, Hematocrit 38.0L , Mean Corpuscular Volume 87, Mean Corpuscular Hemoglobin 27.6, Mean Corpuscular Hemoglobin Concent 31.7L, Red Cell Distribution Width 14.6, Platelet Count 94L, Mean Platelet Volume 10.9H, Neutrophils (%) (Auto) , Lymphocytes (%) (Auto) , Monocytes (%) (Auto) , Eosinophils (%) (Auto) , Basophils (%) (Auto) , Differential Total Cells Counted 100, Neutrophils % (Manual) 83H, Lymphocytes % (Manual) 6L, Monocytes % (Manual) 10, Eosinophils % (Manual) 1, Basophils % (Manual) 0, Band Neutrophils 0, Platelet Estimate DecreasedL, Platelet Morphology Normal, Hypochromasia 1+, Anisocytosis 1+, Sodium Level 143, Potassium Level 5.0, Chloride Level 109H, Carbon Dioxide Level 22, Anion Gap 12, Blood Urea Nitrogen 66H, Creatinine 4.2#H, Estimat Glomerular Filtration Rate 13.9, Glucose Level 115H, Uric Acid 7.7H, Calcium Level 9.4, Phosphorus Level 3.4, Magnesium Level 2.2, Total Bilirubin 0.6, Aspartate Amino Transf (AST/SGOT) 13L, Alanine Aminotransferase (ALT/SGPT) 15, Alkaline Phosphatase 93, Total Creatine Kinase 52, Pro-B-Type Natriuretic Peptide 585H, Total Protein 7.5, Albumin 3.1L, Globulin 4.4, Albumin/Globulin Ratio 0.7L, Prostate Specific Antigen 15.43H Height (Feet): 5 Height (Inches): 10.00 Weight (Pounds): 162 General Appearance: no apparent distress, alert EENT: normal ENT inspection Neck: normal alignment Cardiovascular: normal rate, regular rhythm Respiratory/Chest: lungs clear Abdomen: non tender, no organomegaly Edema: no edema noted Arm (L), no edema noted Arm (R), no edema noted Leg (L), no edema noted Leg (R), no edema noted Pedal (L), no edema noted Pedal (R), no edema noted Generalized Neurologic: natural resources technician II-XII grossly normal Skin: other - eccymoses chest arms Assessment/Plan Problem List: (1) Anxiety ICD Codes: F41.9 - Anxiety disorder, unspecified SNOMED: 62764442 (2) AICD (automatic cardioverter/defibrillator) present ICD Codes: Z95.810 - Presence of automatic (implantable) cardiac defibrillator SNOMED: 69533164, 977214779 (3) CHF (congestive heart failure), NYHA class III ICD Codes: I50.9 - Heart failure, unspecified SNOMED: 483178983, 940843534 (4) BPH (benign prostatic hyperplasia) ICD Codes: N40.0 - Benign prostatic hyperplasia without lower urinary tract symptoms SNOMED: 668462988 (5) XIN (acute kidney injury) ICD Codes: N17.9 - Acute kidney failure, unspecified SNOMED: 13450421, 3112311 (6) Urinary retention ICD Codes: R33.9 - Retention of urine, unspecified SNOMED: 861139268 Assessment/Plan: continue calero hydration trend lab, consults appreciated Marvin Juarez MD May 13, 2020 20:46
[2020-05-13] MEDS: Metoprolol Tartrate 12.5mg TAB ORAL SCH (21:04)
[2020-05-13] MEDS: valACYclovir HCL 500mg tab ORAL SCH (21:05)
[2020-05-13] MEDS: Atorvastatin 80mg tab ORAL SCH (21:05)
--- NOTE | 2020-05-13 23:44 | Consultation ---
DATE OF CONSULTATION: 05/12/2020 CARDIOLOGY CONSULTATION REFERRING PHYSICIAN: Marvin Juarez MD This is for history of intracardiac defibrillator implantation, now with creatinine of 13. HISTORY OF PRESENT ILLNESS: This is a 75-year-old gentleman with history of multiple medical problems as delineated below. The patient came into the hospital for various reasons, somewhat of a difficult history, but he saw his primary care physician, Dr. Thomson, and had some laboratories done with significantly elevated creatinine, was referred to the emergency room for evaluation. He basically indicates that a few days ago while he was walking toward some house, he hit his chest wall and after that he has had problems with confusion and dizziness and overall not feeling well. His ambulation was fairly limited because of weakness that he was experiencing to the point that he was requiring his partner to help him move around the house, and he had some nausea as well. He came to the emergency room at [place] where he was noted to have urinary retention and he had a Vazquez placed subsequently and the Vazquez had been draining a good amount of urine. He denies any chest pain really except for what he had the injury to his chest wall after the injury. No shortness of breath. No PND. No orthopnea. No palpitation. No dizziness or lightheadedness noted by the patient. PAST MEDICAL HISTORY: Positive for a left bundle-branch conduction defect, hyperlipidemia, renal insufficiency, cardiomyopathy, coronary artery atherosclerosis with a coronary calcium score of 710 back in 2017, history of intracardiac defibrillator placement, history of syncope, history of melena, history of hemorrhoids, history of some kind of chronic kidney lesion, hepatitis B 35 years ago, and hay fever. He had a history of renal insufficiency secondary to dehydration in 2019, when he was admitted here with diarrhea. That resolved. He has had a history of appendectomy. ALLERGIES: Coreg, which caused him to have some facial rash. SOCIAL HISTORY: He quit smoking 30 years ago, 2 packs per day for 9 to 10 years. Alcohol drink on a regular basis. Marijuana. Not , no kids. 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 His last office visit with me was on March 25, 2020 approximately 2 months ago. His medications at that time included acyclovir 200 mg daily, aspirin 81 mg, Lipitor 20 mg, Celexa 20 mg, , lisinopril 40 mg, metoprolol 37.5 mg twice a day, omeprazole, temazepam 30 mg, and terazosin 5 mg on a daily basis. REVIEW OF SYSTEMS: GASTROINTESTINAL: As mentioned, history of nausea. No vomiting. No black or bloody stool. GENITOURINARY: He is able to urinate, but it hurts when he urinates, so he apparently goes on low volumes. PULMONARY: No coughing or wheezing. CONSTITUTIONAL: Denies any fever, chills, or night sweats. No body aches or pain. PULMONARY: No coughing, wheezing, or sore throat. NEUROLOGICAL: Negative. His partner did call apparently and indicated to the nursing staff that he has had a fall and he has had his . PHYSICAL EXAMINATION: GENERAL: An elderly gentleman, in no respiratory distress. NECK: Supple. No jugular venous distention. LUNGS: Clear to auscultation and percussion. CARDIAC: S1 is normal. S2 is normal. Regular rate and rhythm. ABDOMEN: Soft, nontender. Positive bowel sounds. EXTREMITIES: There is no clubbing, cyanosis, nor is there any edema. NEUROLOGICAL: He is awake, alert, and responsive. LABORATORY AND DIAGNOSTIC DATA: White count 10.5, hemoglobin 12.5, and platelet count of 94,000. Chemistry, sodium 136, potassium 5.7, chloride 101, bicarb of 18, BUN of 129, creatinine of 16, and glucose of 120. Liver function test looks normal. His total bilirubin is 7.7. His urinalysis shows 4+ blood, 2-4 rbc's, 0-2 wbc's. IMAGING: He did have a renal ultrasound that showed bilateral hydronephrosis of unknown etiology, left renal cyst similar to what was noted in 2017, enlarged prostate, and because of his fall, I did recommend to the emergency room physician to perform a CT scan. ASSESSMENT AND PLAN: 1. Acute renal failure. 2. Urinary retention. 3. Left bundle-branch conduction defect. 4. Cardiomyopathy. 5. Coronary artery atherosclerosis with negative ischemia evaluation previously. 6. History of intracardiac defibrillator placement. 7. Recent fall. This patient was seen in cardiac consultation. The patient is being admitted to Dr. Jaurez for evaluation of renal insufficiency. He has a Vazquez catheter placed. He has been seen by Dr. Guerra. From a cardiac point of view, he appears to be relatively stable. No symptoms or signs of congestive heart failure or coronary syndrome at this time. His blood pressures seem to be okay on initial admission to the hospital. I will follow the patient along. We will see how relief of obstruction of his urinary system would result in his renal function to be stabilized. For the time being, ISRAEL inhibitors of course will be discontinued and he will be followed otherwise with some hydration. I will follow the patient along with you. Alfonso Morton M.D. DR: VLADISLAV JOB#: [id number] CC:
[2020-05-14] VITALS: BP 126/70
--- NOTE | 2020-05-14 01:03 | NUR ---
NURSE NOTES: Patient confused. Patient removed IV and Vazquez anker. New IV and new Vazquez anker applied.
--- NOTE | 2020-05-14 02:24 | NUR ---
NURSE NOTES: Patient confused. Patient removed IV. New IV inserted.
[2020-05-14 04:00] VITALS: BP 137/78
[2020-05-14 07:14] LABS: CALCIUM 9.2 MG/DL (8.5-10.1); CREATININE 1.3 MG/DL (0.55-1.30); PHOSPHORUS 2.5 MG/DL (2.5-4.9); POTASSIUM 5.2 MMOL/L (3.5-5.1)
--- NOTE | 2020-05-14 07:30 | NUR ---
NURSE NOTES: Pt lying in bed w/bed in lowest position and call light within reach. Pt A&Ox2, VSS, and in no apparent distress. IV site intact/asymptomatic w/IVF infusing; F/C patent/draining blood-tinged urine; and skin intact. Will continue to monitor.
--- NOTE | 2020-05-14 07:53 | NUR ---
NURSE HAND-OFF: Important Events on Shift: Patient Status: Diet: Regular Pending Orders: Pending Results/Labs: Pending MD notification: Latest Vital Signs: Temperature 97.1 , Pulse 74 , B/P 137 /78 , Respiratory Rate 20 , O2 SAT 97 , Room Air, O2 Flow Rate . Vital Sign Comment: Latest Lewis Fall Score: 85 Fall Risk: High Risk Safety Measures: Call light Within Reach, Bed Alarm Zone 1, Side Rails Side Rails x2, Bed position Low and Locked. Fall Precautions: Door Sign Patient Fall Education Report given to Keiry CEBALLOS.
[2020-05-14 08:00] VITALS: BP 146/95
--- NOTE | 2020-05-14 08:05 | Urology Progress Note ---
Assessment/Plan Assessment/Plan: 1. Renal insufficiency with acute kidney injury. Possible underlying chronic kidney disease. 2. Urinary retention. 3. BPH. 4. Possible neurogenic bladder. 5. Hematuria. 6. Renal mass history. 7. Hydronephrosis. 8. Renal cyst. monitor clinically maintain calero hand irrigated and do PRN monitor renal fxn, improved flomax and proscar voiding trial later, likely as outpt cysto electively may need TURP at some point Subjective Allergies: Coded Allergies: No Known Allergies (Unverified , 06/13/18) Subjective all noted feels fair Objective Last 24 Hour Vital Signs Date Time Temp Pulse Resp B/P (MAP) Pulse Ox O2 Delivery O2 Flow Rate FiO2 05/14/20 04:00 97.1 74 20 137/78 (97) 97 05/14/20 01:31 103 20 147/86 97 05/14/20 01:01 103 20 147/86 97 05/14/20 00:00 97.2 67 20 126/70 (88) 97 05/13/20 21:04 103 147/86 05/13/20 21:00 Room Air 05/13/20 20:00 97.6 103 20 147/86 (106) 97 05/13/20 16:00 97.6 116 20 130/96 (107) 97 05/13/20 12:00 97.1 98 19 130/82 (98) 99 05/13/20 09:00 Room Air Intake and Output 05/13/20 05/14/20 19:00 07:00 Intake Total 2885 ml 1880 ml Output Total 1900 ml 1350 ml Balance 985 ml 530 ml Intake Oral 960 ml 480 ml IV Total 1925 ml 1400 ml Output Urine Total 1900 ml 1350 ml Microbiology Date/Time Source Procedure Growth Status 05/12/20 20:50 Indwelling Cath Urine Culture - Preliminary NO GROWTH Resulted Current Medications Medications (Trade) Dose Ordered Sig/Damari Route PRN Reason Start Time Stop Time Status Last Admin Dose Admin Acetaminophen (Tylenol) 650 mg Q4H PRN ORAL For Pain 05/12/20 19:15 06/11/20 19:14 Aspirin (Ecotrin) 81 mg DAILY ORAL 05/14/20 09:00 06/28/20 08:59 Atorvastatin Calcium (Lipitor) 80 mg BEDTIME ORAL 05/13/20 21:00 08/11/20 20:59 05/13/20 21:05 Citalopram Hydrobromide (CeleXA) 20 mg DAILY ORAL 05/13/20 16:00 06/12/20 15:59 05/13/20 17:03 Finasteride (Proscar) 5 mg DAILY ORAL 05/13/20 09:00 08/11/20 08:59 05/13/20 08:31 Heparin Sodium (Porcine) (Heparin 5000 units/ml) 5,000 units EVERY 12 HOURS SUBQ 05/12/20 21:00 06/26/20 20:59 05/13/20 21:06 Lorazepam (Ativan) 0.5 mg TIDPRN PRN ORAL For Anxiety 05/13/20 16:00 05/20/20 15:59 05/14/20 01:01 Metoprolol Tartrate (Lopressor) 37.5 mg Q12HR ORAL 05/13/20 21:00 08/11/20 20:59 05/13/20 21:04 Sodium Chloride 1,000 ml @ 175 mls/hr Q5H43M IV 05/12/20 19:15 06/11/20 19:14 05/14/20 04:00 Tamsulosin HCl (Flomax) 0.4 mg BID ORAL 05/13/20 09:00 06/12/20 08:59 05/13/20 17:04 Temazepam (Restoril) 30 mg BEDTIME ORAL 05/13/20 21:00 05/20/20 20:59 05/13/20 21:05 Valacyclovir HCl (Valtrex) 500 mg EVERY 12 HOURS ORAL 05/13/20 21:00 06/12/20 20:59 05/13/20 21:05 Laboratory Tests 05/14/20 04:55: Sodium Level 143, Potassium Level 5.2H, Chloride Level 110H, Carbon Dioxide Level 25, Anion Gap 8, Blood Urea Nitrogen 29H, Creatinine 1.3#, Estimat Glomerular Filtration Rate 53.7, Glucose Level 130H, Calcium Level 9.2, Phosphorus Level 2.5, Magnesium Level 2.0 Height (Feet): 5 Height (Inches): 10.00 Weight (Pounds): 162 Objective exam stable calero indwelling, yellow/nereyda urine Ethan Guerra MD May 14, 2020 08:05
[2020-05-14] MEDS: Tamsulosin 0.4mg cap ORAL SCH ×2 (08:39→18:15)
[2020-05-14] MEDS: Aspirin EC 81mg tab ORAL SCH (08:39)
[2020-05-14] MEDS: Citalopram Hydrobromide 10mg Tab ORAL SCH (08:39)
[2020-05-14] MEDS: valACYclovir HCL 500mg tab ORAL SCH ×2 (08:39→20:36)
[2020-05-14] MEDS: Metoprolol Tartrate 12.5mg TAB ORAL SCH ×2 (08:39→20:35)
[2020-05-14] MEDS: Heparin 5000 units/ml inj SUBQ SCH ×2 (08:40→20:36)
--- NOTE | 2020-05-14 09:28 | General Progress Note ---
Subjective Constitutional: Reports: weakness HEENT: Reports: no symptoms Cardiovascular: Reports: no symptoms Gastrointestinal/Abdominal: Reports: nausea, poor appetite Genitourinary: Reports: other - retention Neurologic/Psychiatric: Reports: no symptoms Endocrine: Reports: no symptoms Hematologic/Lymphatic: Reports: no symptoms Allergies: Coded Allergies: No Known Allergies (Unverified , 06/13/18) Objective Last 24 Hour Vital Signs Date Time Temp Pulse Resp B/P (MAP) Pulse Ox O2 Delivery O2 Flow Rate FiO2 05/14/20 08:39 84 146/95 05/14/20 08:00 97.6 84 20 146/95 (112) 98 05/14/20 04:00 97.1 74 20 137/78 (97) 97 05/14/20 01:31 103 20 147/86 97 05/14/20 01:01 103 20 147/86 97 05/14/20 00:00 97.2 67 20 126/70 (88) 97 05/13/20 21:04 103 147/86 05/13/20 21:00 Room Air 05/13/20 20:00 97.6 103 20 147/86 (106) 97 05/13/20 16:00 97.6 116 20 130/96 (107) 97 05/13/20 12:00 97.1 98 19 130/82 (98) 99 Intake and Output 05/13/20 05/14/20 19:00 07:00 Intake Total 2885 ml 1880 ml Output Total 1900 ml 1350 ml Balance 985 ml 530 ml Intake Oral 960 ml 480 ml IV Total 1925 ml 1400 ml Output Urine Total 1900 ml 1350 ml Laboratory Tests 05/14/20 04:55: Sodium Level 143, Potassium Level 5.2H, Chloride Level 110H, Carbon Dioxide Level 25, Anion Gap 8, Blood Urea Nitrogen 29H, Creatinine 1.3#, Estimat Michelle merular Filtration Rate 53.7, Glucose Level 130H, Calcium Level 9.2, Phosphorus Level 2.5, Magnesium Level 2.0 Height (Feet): 5 Height (Inches): 10.00 Weight (Pounds): 162 General Appearance: no apparent distress, alert EENT: normal ENT inspection Neck: normal alignment Cardiovascular: normal rate, regular rhythm Respiratory/Chest: lungs clear, normal breath sounds Abdomen: soft Extremities: non-tender Edema: no edema noted Arm (L), no edema noted Arm (R), no edema noted Leg (L), no edema noted Leg (R), no edema noted Pedal (L), no edema noted Pedal (R), no edema noted Generalized Neurologic: tapeman II-XII grossly normal Skin: other - eccymoses Assessment/Plan Problem List: (1) Anxiety ICD Codes: F41.9 - Anxiety disorder, unspecified SNOMED: 74057190 (2) AICD (automatic cardioverter/defibrillator) present ICD Codes: Z95.810 - Presence of automatic (implantable) cardiac defibrillator SNOMED: 58805955, 630756430 (3) CHF (congestive heart failure), NYHA class III ICD Codes: I50.9 - Heart failure, unspecified SNOMED: 463303788, 362401851 (4) BPH (benign prostatic hyperplasia) ICD Codes: N40.0 - Benign prostatic hyperplasia without lower urinary tract symptoms SNOMED: 788366070 (5) XIN (acute kidney injury) ICD Codes: N17.9 - Acute kidney failure, unspecified SNOMED: 47153109, 2732168 (6) Urinary retention ICD Codes: R33.9 - Retention of urine, unspecified SNOMED: 957170230 (7) Nausea & vomiting ICD Codes: R11.2 - Nausea with vomiting, unspecified SNOMED: 09770112 Assessment/Plan: continue calero hydration trend lab, consults appreciated, nausea add protonix, mobilize Marvin Juarez MD May 14, 2020 09:28
[2020-05-14] MEDS ORDERED: Bisacodyl EC 5mg tab ORAL SCH (09:30)
--- NOTE | 2020-05-14 10:30 | NUR ---
NURSE NOTES: Offered to ambulate w/pt and informed him that MD would like for him to walk but pt refused at this time and asked to try some time later. Will continue to monitor.
[2020-05-14 12:00] VITALS: BP 139/89
--- NOTE | 2020-05-14 13:16 | Diagnostic Imaging Report ---
EXAM: X-RAY XRAY Ribs minimum 2v Uni L CLINICAL HISTORY: Trauma with rib pain. COMPARISON: None FINDINGS: Total of 4 views of the left ribs were obtained. There is a fracture of the left sixth rib. No other definite fractures seen. Lungs are clear without pneumothorax. ICD in place. IMPRESSION: LEFT SIXTH RIB FRACTURE. NO PNEUMOTHORAX.
--- NOTE | 2020-05-14 13:27 | NUR ---
*-*DISCHARGE PLAN*-* PATIENT HAS BEEN ACCEPTED WITH: [facility] P: [phone] S/W YOANA WILL SERVICE PATIENT UPON DISCHARGE.
[2020-05-14] MEDS ORDERED: 1/2 NS 1000ml IV ONE (13:49)
--- NOTE | 2020-05-14 15:30 | NUR ---
NURSE NOTES: Ambulated w/pt around unit twice; pt tolerated fairly well but did c/o fatigue. Helped pt back to bed w/o incident. Will continue to monitor.
[2020-05-14 16:00] VITALS: BP 152/70
--- NOTE | 2020-05-14 16:14 | Consultation ---
DATE OF CONSULTATION: 05/14/2020 GASTROENTEROLOGY CONSULTATION CONSULTING PHYSICIAN: Rubén Celis MD. REFERRING PHYSICIAN: Sathish Thomson MD. CHIEF COMPLAINT: Nausea, vomiting, abdominal pain. HISTORY OF PRESENT ILLNESS: This is a pleasant 75-year-old male, patient of Dr. Thomson, was admitted to the hospital with acute renal failure. GI consult requested for evaluation of significant vomiting. PAST MEDICAL HISTORY: Significant for, 1. History of left bundle-branch block. 2. Hyperlipidemia. 3. Renal insufficiency. 4. Cardiomyopathy. 5. Coronary artery disease. 6. History of defibrillator placement. 7. History of syncope. 8. History of upper GI bleeding with melena. 9. History of hemorrhoids. 10. Hepatitis B about 35 years ago. PAST SURGICAL HISTORY: History of appendectomy. ALLERGIES: Coreg. MEDICATIONS: See medication reconciliation list. SOCIAL HISTORY: The patient quit tobacco about 30 years ago. Alcohol, the patient drinks on a regular basis, marijuana too. The patient is a homosexual and lives with significant other. PHYSICAL EXAMINATION: VITAL SIGNS: Temperature is 97.6, pulse 84, respirations 20, blood pressure 145/95. HEENT: Normocephalic and atraumatic. Sclerae are anicteric. NECK: Supple. No evidence of obvious lymphadenopathy. CARDIOVASCULAR: Regular rate and rhythm. Plus S1 and S2. LUNGS: Decreased breath sounds bilaterally based on supine exam. ABDOMEN: Soft, nontender. No rebound. No guarding. No peritoneal sign. EXTREMITIES: No cyanosis, no clubbing, no edema. LABORATORY DATA: White count is 9, hemoglobin 12, hematocrit 38, platelet count is 94,000. Sodium 143, potassium 5.2, BUN is 29, creatinine 1.3. Glucose is 130. PSA is 15. ASSESSMENT AND PLAN: This is a 75-year-old male with nausea and vomiting, possible for uremia. Admission BUN was 129 and creatinine of 16, but the patient had prior history of upper GI bleeding with melena and apparently is scheduled to get endoscopy in anyway as an outpatient next week. We offered the patient to get while here for evaluation for anemia, evaluation for vomiting. The patient states he is going to think about it tonight and will agree to tomorrow if he feels to have it done. Meanwhile, we are going to control the patient's nausea with Zofran. Consider adding Reglan if needed, PPI also as needed. I want to thank Dr. Thomson for this kind referral. Rubén Celis M.D. DR: GHAZAL JOB#: [id number] CC: Sathish Thomson M.D.
[2020-05-14] MEDS ORDERED: ZESTRIL40 MG ORAL (18:34)
[2020-05-14] MEDS ORDERED: TEMAZEPAM30 MG ORAL (18:34)
[2020-05-14] MEDS ORDERED: ACYCLOVIR200 MG ORAL (18:34)
--- NOTE | 2020-05-14 19:05 | Cardiology Progress Note ---
Assessment/Plan Assessment/Plan obstructive uropathy arf elevated psa cm cad neg prior ischemia eval left 6th rib fracture off acei bp is elevated ct noted neg for bleed psa sig increased renal function continues to improve y post Calero off acei to resume if and when ok with renal decrease statin dose rib series noted + for fx Subjective Cardiovascular: Denies: chest pain, lightheadedness, palpitations Respiratory: Denies: shortness of breath Gastrointestinal/Abdominal: Denies: abdominal pain Genitourinary: Reports: other - calero Objective Last 24 Hour Vital Signs Date Time Temp Pulse Resp B/P (MAP) Pulse Ox O2 Delivery O2 Flow Rate FiO2 05/14/20 16:00 97.1 90 19 152/70 (97) 98 05/14/20 12:00 98.6 87 19 139/89 (106) 98 05/14/20 09:00 Room Air 05/14/20 08:39 84 146/95 05/14/20 08:00 97.6 84 20 146/95 (112) 98 05/14/20 04:00 97.1 74 20 137/78 (97) 97 05/14/20 01:31 103 20 147/86 97 05/14/20 01:01 103 20 147/86 97 05/14/20 00:00 97.2 67 20 126/70 (88) 97 05/13/20 21:04 103 147/86 05/13/20 21:00 Room Air 05/13/20 20:00 97.6 103 20 147/86 (106) 97 General Appearance: no apparent distress, alert Neck: supple Cardiovascular: normal rate Respiratory/Chest: lungs clear Abdomen: normal bowel sounds, soft Extremities: no swelling Intake and Output 05/13/20 05/14/20 19:00 07:00 Intake Total 2885 ml 1880 ml Output Total 1900 ml 1350 ml Balance 985 ml 530 ml Intake Oral 960 ml 480 ml IV Total 1925 ml 1400 ml Output Urine Total 1900 ml 1350 ml Laboratory Tests Test 05/14/20 04:55 Sodium Level 143 MMOL/L (136-145) Potassium Level 5.2 MMOL/L (3.5-5.1) H Chloride Level 110 MMOL/L (98-107) H Carbon Dioxide Level 25 MMOL/L (21-32) Anion Gap 8 mmol/L (5-15) Blood Urea Nitrogen 29 mg/dL (7-18) H Creatinine 1.3 MG/DL (0.55-1.30) # Estimat Glomerular Filtration Rate 53.7 mL/min (>60) Glucose Level 130 MG/DL (74-106) H Calcium Level 9.2 MG/DL (8.5-10.1) Phosphorus Level 2.5 MG/DL (2.5-4.9) Magnesium Level 2.0 MG/DL (1.8-2.4) Microbiology Date/Time Source Procedure Growth Status 05/12/20 20:50 Indwelling Cath Urine Culture - Final NO GROWTH AFTER 48 HOURS Complete Alfonso Morton MD May 14, 2020 19:05
--- NOTE | 2020-05-14 19:24 | NUR ---
NURSE HAND-OFF: Important Events on Shift: Ambulated w/pt around unit; pt had BM x 2; emesis x 1 but tolerating diet better. Patient Status: Stable Diet: Regular Pending Orders: None Pending Results/Labs: None Pending MD notification: None Latest Vital Signs: Temperature 97.1 , Pulse 90 , B/P 152 /70 , Respiratory Rate 19 , O2 SAT 98 , Room Air, O2 Flow Rate . Vital Sign Comment: Stable Latest Lewis Fall Score: 85 Fall Risk: High Risk Safety Measures: Call light Within Reach, Bed Alarm Zone 1, Side Rails Side Rails x2, Bed position Low and Locked. Fall Precautions: Door Sign Patient Fall Education Report given to JOSÉ MIGUEL Collins.
[2020-05-14 20:00] VITALS: BP 143/98
--- NOTE | 2020-05-14 20:00 | NUR ---
NURSE NOTES:RECEIVED PATIENT LYING IN BED, AWAKE, ALERT/ORIENTED X3, FORGETFUL/CONFUSED, DENIES PAIN. NO SIGNS AND SYMPTOMS OF ACUTE CARDIO RESPIRATORY DISTRESS/SHORTNESS OF BREATH, DENIES CHEST PAIN, HEADACHE, DIZZINESS OR PALPITATIONS, NO PERIPHERAL EDEMA NOTED, S/P FALL PRIOR TO ADMISSION, ECCHYMOSIS NOTED TO UPPER/LOWER EXTREMITIES. IV INTACT TO LEFT AC/GAUGE 22, TOLERATING IV FLUIDS 1/2 NS 100ML/HOUR, NO REDNESS/SWELLING NOTED TO SITE. GAVIRIA CATHETER INTACT/PATENT, DRAINING YELLOW URINE VIA GRAVITY, NO SIGNS OF HEMATURIA, WILL CONTINUE TO MONITOR. SIDE RAILS UP X2, BED IN LOWEST POSITION FOR SAFETY, ENCOURAGED PATIENT TO UTILIZE CALL LIGHT FOR ASSISTANCE, VERBALIZED UNDERSTANDING, CONTINUE WITH CURRENT PLAN OF CARE. EGD OUTPATIENT, PATIENT AWARE. NAD.DISCHARGE PLAN ONGOING.
[2020-05-14] MEDS: Atorvastatin 80mg tab ORAL SCH (20:35)
[2020-05-15] VITALS: BP 122/76
[2020-05-15 04:00] VITALS: BP 142/87
[2020-05-15 06:42] LABS: EOSINOPHILS % (AUTO) 9.5 % (0.0-3.0); HEMATOCRIT 38.2 % (42.0-52.0); HEMOGLOBIN 12.3 G/DL (14.2-18.0); LYMPHOCYTES % (AUTO) 19.8 % (20.0-45.0); MEAN CORPUSCULAR VOLUME 87 FL (80-99); MONOCYTES % (AUTO) 9.2 % (1.0-10.0); NEUTROPHILS % (AUTO) 60.6 % (45.0-75.0); PLATELET COUNT 127 K/UL (150-450); RED BLOOD COUNT 4.37 M/UL (4.70-6.10); RED CELL DISTRIBUTION WIDTH 14.6 % (11.6-14.8); WHITE BLOOD COUNT 8.3 K/UL (4.8-10.8)
[2020-05-15 07:00] LABS: ANION GAP 9 mmol/L (5-15); BLOOD UREA NITROGEN 18 mg/dL (7-18); CALCIUM 9.3 MG/DL (8.5-10.1); CARBON DIOXIDE 25 MMOL/L (21-32); CHLORIDE 107 MMOL/L (98-107); SODIUM 141 MMOL/L (136-145)
--- NOTE | 2020-05-15 07:57 | NUR ---
NURSE HAND-OFF: Important Events on Shift:[UNEVENTFUL NIGHT, NO BEHAVIORAL ISSUES, RESTED WELL, DCP HOME WITH HH, DC WITH GAVIRIA CATHETER] Patient Status: [STABLE, AFEBRILE Diet: [REGULAR] Pending Orders: [AM LABS] Pending Results/Labs:[] Pending MD notification:[] Latest Vital Signs: Temperature 97.3 , Pulse 83 , B/P 142 /87 , Respiratory Rate 16 , O2 SAT 96 , Room Air, O2 Flow Rate . Vital Sign Comment: [STABLE, AFEBRILE] Latest Lewis Fall Score: 85 Fall Risk: High Risk Safety Measures: Call light Within Reach, Bed Alarm Zone 1, Side Rails Side Rails x2, Bed position Low and Locked. Fall Precautions: Door Sign Patient Fall Education Report given to [JOSÉ MIGUEL REDDY].
--- NOTE | 2020-05-15 07:58 | Urology Progress Note ---
Assessment/Plan Assessment/Plan: 1. Renal insufficiency with acute kidney injury, resolved. 2. Urinary retention. 3. BPH. 4. Possible neurogenic bladder. 5. Hematuria. 6. Renal mass history. 7. Hydronephrosis. 8. Renal cyst. monitor clinically maintain calero hand irrigated and do PRN monitor renal fxn, improved flomax and proscar voiding trial later, as outpt cysto electively may need TURP at some point consider repeat renal imaging d/w Dr. Juarez Subjective Allergies: Coded Allergies: No Known Allergies (Unverified , 06/13/18) Subjective all noted feels fair Objective Last 24 Hour Vital Signs Date Time Temp Pulse Resp B/P (MAP) Pulse Ox O2 Delivery O2 Flow Rate FiO2 05/15/20 04:00 97.3 83 16 142/87 (105) 96 05/15/20 00:00 97.8 74 20 122/76 (91) 96 05/14/20 20:56 Room Air 05/14/20 20:35 92 155/89 05/14/20 20:00 98.1 99 18 143/98 (113) 96 05/14/20 16:00 97.1 90 19 152/70 (97) 98 05/14/20 12:00 98.6 87 19 139/89 (106) 98 05/14/20 09:00 Room Air 05/14/20 08:39 84 146/95 05/14/20 08:00 97.6 84 20 146/95 (112) 98 Intake and Output 05/14/20 05/15/20 19:00 07:00 Intake Total 2705 ml 2400 ml Output Total 1125 ml 1200 ml Balance 1580 ml 1200 ml Intake Oral 1280 ml 1400 ml IV Total 1425 ml 1000 ml Output Urine Total 925 ml 1200 ml Emesis 200 ml # Bowel Movements 2 Microbiology Date/Time Source Procedure Growth Status 05/12/20 20:50 Indwelling Cath Urine Culture - Final NO GROWTH AFTER 48 HOURS Complete Current Medications Medications (Trade) Dose Ordered Sig/Damari Route PRN Reason Start Time Stop Time Status Last Admin Dose Admin Acetaminophen (Tylenol) 650 mg Q4H PRN ORAL For Pain 05/12/20 19:15 06/11/20 19:14 Aspirin (Ecotrin) 81 mg DAILY ORAL 05/14/20 09:00 06/28/20 08:59 05/14/20 08:39 Atorvastatin Calcium (Lipitor) 80 mg BEDTIME ORAL 05/13/20 21:00 08/11/20 20:59 05/14/20 20:35 Citalopram Hydrobromide (CeleXA) 20 mg DAILY ORAL 05/13/20 16:00 06/12/20 15:59 05/14/20 08:39 Finasteride (Proscar) 5 mg DAILY ORAL 05/13/20 09:00 08/11/20 08:59 05/14/20 08:39 Heparin Sodium (Porcine) (Heparin 5000 units/ml) 5,000 units EVERY 12 HOURS SUBQ 05/12/20 21:00 06/26/20 20:59 05/14/20 20:36 Lorazepam (Ativan) 0.5 mg TIDPRN PRN ORAL For Anxiety 05/13/20 16:00 05/20/20 15:59 05/14/20 01:01 Metoprolol Tartrate (Lopressor) 37.5 mg Q12HR ORAL 05/13/20 21:00 08/11/20 20:59 05/14/20 20:35 Ondansetron HCl (Zofran) 4 mg Q6H PRN IVP Nausea & Vomiting 05/14/20 09:30 06/13/20 09:29 Pantoprazole (Protonix) 40 mg DAILY ORAL 05/14/20 09:30 06/13/20 09:29 05/14/20 10:05 Sodium Chloride 1,000 ml @ 100 mls/hr Q10H IV 05/12/20 19:15 06/11/20 19:14 05/14/20 21:00 Tamsulosin HCl (Flomax) 0.4 mg BID ORAL 05/13/20 09:00 06/12/20 08:59 05/14/20 18:15 Temazepam (Restoril) 30 mg BEDTIME ORAL 05/13/20 21:00 05/20/20 20:59 05/14/20 20:35 Valacyclovir HCl (Valtrex) 500 mg EVERY 12 HOURS ORAL 05/13/20 21:00 06/12/20 20:59 05/14/20 20:36 Laboratory Tests 05/15/20 04:55: White Blood Count 8.3, Red Blood Count 4.37L, Hemoglobin 12.3L, Hematocrit 38.2L , Mean Corpuscular Volume 87, Mean Corpuscular Hemoglobin 28.2, Mean Corpuscular Hemoglobin Concent 32.2, Red Cell Distribution Width 14.6, Platelet Count 127L, Mean Platelet Volume 8.5, Neutrophils (%) (Auto) 60.6, Lymphocytes (%) (Auto) 19.8L, Monocytes (%) (Auto) 9.2, Eosinophils (%) (Auto) 9.5H, Basophils (%) (Auto) 1.0, Sodium Level 141, Potassium Level 4.0, Chloride Level 107, Carbon Dioxide Level 25, Anion Gap 9, Blood Urea Nitrogen 18, Creatinine 1.0, Estimat Glomerular Filtration Rate > 60, Glucose Level 101, Calcium Level 9.3 Height (Feet): 5 Height (Inches): 10.00 Weight (Pounds): 162 Objective exam stable calero indwelling, yellow/nereyda urine Ethan Guerra MD May 15, 2020 07:58
[2020-05-15 08:00] VITALS: BP 139/79
--- NOTE | 2020-05-15 08:02 | NUR ---
CASE MANAGEMENT:REVIEW' 05/15/20 SI: XIN. URINARY RETENTION 97.3 83 16 142/87 96% ON RA H/H-12.3/38.2 PLT-127 IS: IVF@100/HR PROTONIX PO QD ASA PO QD RESTORIL PO QHS LOPRESSOR PO Q12 LIPITOR PO QHS CELEXA PO QD PROSCAR PO QD FLOMAX PO BID HEPARIN S Q Q12 : MED/SURG STATUS DCP: FROM HOME PLAN: WILL DISCHARGE WITH [facility] CATH
[2020-05-15] MEDS: Citalopram Hydrobromide 10mg Tab ORAL SCH (08:29)
[2020-05-15] MEDS: Tamsulosin 0.4mg cap ORAL SCH (08:29)
[2020-05-15] MEDS: valACYclovir HCL 500mg tab ORAL SCH (08:29)
[2020-05-15] MEDS: Aspirin EC 81mg tab ORAL SCH (08:30)
[2020-05-15] MEDS: Metoprolol Tartrate 12.5mg TAB ORAL SCH (08:30)
[2020-05-15] MEDS: Heparin 5000 units/ml inj SUBQ SCH (08:35)
--- NOTE | 2020-05-15 08:58 | NUR ---
NURSE NOTES: REPORT RECEIVED FROM CARLO. RECEIVED PATIENT LYING IN BED, AWAKE, ALERT/ORIENTED X3. ABLE TO MAKE NEEDS KNOWN. DENIES PAIN. NO SIGNS AND SYMPTOMS OF ACUTE CARDIO-RESPIRATORY DISTRESS/SHORTNESS OF BREATH, DENIES CHEST PAIN, DIZZINESS OR PALPITATIONS, NO PERIPHERAL EDEMA NOTED, S/P FALL PRIOR TO ADMISSION, ECCHYMOSIS NOTED TO UPPER/LOWER EXTREMITIES. PIV INTACT TO LEFT AC/GAUGE 22, TOLERATING IV FLUIDS 1/2 NS 100ML/HOUR, NO REDNESS/SWELLING NOTED TO SITE. G[facility] CATHETER INTACT/PATENT, DRAINING YELLOW URINE VIA GRAVITY, NO SIGNS OF HEMATURIA, WILL CONTINUE TO MONITOR. SIDE RAILS UP X2, BED IN LOWEST POSITION FOR SAFETY, ENCOURAGED PATIENT TO UTILIZE CALL LIGHT FOR ASSISTANCE, VERBALIZED UNDERSTANDING, CONTINUE WITH CURRENT PLAN OF CARE.
--- NOTE | 2020-05-15 09:30 | NUR ---
NURSE NOTES: d/c from IVF. alexandrea now. patient been taught how to apply and empty urinary leg bag. able to comprehend. Attempted to ambulate patient earlier c/o dizziness. explained to patient not to get up abruptly. have patient seated on a chair and will try later again. no acute distress noted. will cont to monitor.
--- NOTE | 2020-05-15 09:50 | NUR ---
NURSE NOTES: patient now refused to walk with a staff. Stated that he would like to wait and talk with the PMD. Awaits for the PMD to make his rounds. will cont to monitor.
[2020-05-15] MEDS ORDERED: VALACYCLOVIR1000 MG ORAL (11:33)
[2020-05-15] MEDS ORDERED: FLOMAX0.4 MG ORAL (11:33)
[2020-05-15] MEDS ORDERED: FINASTERIDE5 MG ORAL (11:33)
[2020-05-15 12:00] VITALS: BP 116/74
[2020-05-15] MEDS ORDERED: 1/2 NS 1000ml IV ONE (12:40)
--- NOTE | 2020-05-15 12:46 | General Progress Note ---
Subjective ROS Limited/Unobtainable: Yes Allergies: Coded Allergies: No Known Allergies (Unverified , 06/13/18) Objective Last 24 Hour Vital Signs Date Time Temp Pulse Resp B/P (MAP) Pulse Ox O2 Delivery O2 Flow Rate FiO2 05/15/20 12:00 97.6 78 18 116/74 (88) 95 05/15/20 08:30 107 139/79 05/15/20 08:00 97.9 107 18 139/79 (99) 98 05/15/20 04:00 97.3 83 16 142/87 (105) 96 05/15/20 00:00 97.8 74 20 122/76 (91) 96 05/14/20 20:56 Room Air 05/14/20 20:35 92 155/89 05/14/20 20:00 98.1 99 18 143/98 (113) 96 05/14/20 16:00 97.1 90 19 152/70 (97) 98 Intake and Output 05/14/20 05/15/20 19:00 07:00 Intake Total 2705 ml 2400 ml Output Total 1125 ml 1200 ml Balance 1580 ml 1200 ml Intake Oral 1280 ml 1400 ml IV Total 1425 ml 1000 ml Output Urine Total 925 ml 1200 ml Emesis 200 ml # Bowel Movements 2 Laboratory Tests 05/15/20 04:55: White Blood Count 8.3, Red Blood Count 4.37L, Hemoglobin 12.3L, Hematocrit 38.2L , Mean Corpuscular Volume 87, Mean Corpuscular Hemoglobin 28.2, Mean Corpuscular Hemoglobin Concent 32.2, Red Cell Distribution Width 14.6, Platelet Count 127L, Mean Platelet Volume 8.5, Neutrophils (%) (Auto) 60.6, Lymphocytes (%) (Auto) 19.8L, Monocytes (%) (Auto) 9.2, Eosinophils (%) (Auto) 9.5H, Basophils (%) (Auto) 1.0, Sodium Level 141, Potassium Level 4.0, Chloride Level 107, Carbon Dioxide Level 25, Anion Gap 9, Blood Urea Nitrogen 18, Creatinine 1.0, Estimat Glomerular Filtration Rate > 60, Glucose Level 101, Calcium Level 9.3 Height (Feet): 5 Height (Inches): 10.00 Weight (Pounds): 162 General Appearance: no apparent distress EENT: normal ENT inspection Neck: supple Cardiovascular: normal rate Respiratory/Chest: lungs clear Abdomen: normal bowel sounds, non tender, no organomegaly Extremities: non-tender Assessment/Plan Assessment/Plan: 1. History of left bundle-branch block. 2. Hyperlipidemia. 3. Renal insufficiency. 4. Cardiomyopathy. 5. Coronary artery disease. 6. History of defibrillator placement. 7. History of syncope. 8. History of upper GI bleeding with melena. 9. History of hemorrhoids. 10. Hepatitis B about 35 years ago. refused EGD being dc Rubén Celis MD May 15, 2020 12:45
--- NOTE | 2020-05-15 12:52 | NUR ---
NURSE NOTES: DISCHARGED HOME WITH H/H. VERIFIED HOME ADDRESS. OWN MEDS RETURNED TO PATIENT. REMOVED IV HEPLOCK. PERSONAL BELONGINGS NOTED. DISCHARGED INSTRUCTIONS GIVEN AND RX. PATIENT REFUSING TO WALK AND PMD AWARE. VERBALIZED UNDERSTANDING. Addendum: 05/15/20 at 1256 by GEORGE CUI LVN IN STABLE CONDITION.
--- NOTE | 2020-05-15 15:59 | Discharge Summary ---
DATE OF ADMISSION: 05/12/2020 DATE OF DISCHARGE: 05/15/2020 PERTINENT HISTORY: The patient presents with a creatinine up to 16, acute kidney injury, and urinary retention. There is a history of hypertension, BPH, nonischemic cardiomyopathy with an ICD. PERTINENT PHYSICAL FINDINGS: LUNGS: Clear. HEART: Regular rhythm. No murmur. ABDOMEN: Soft. Mild suprapubic tenderness. GENITOURINARY: A Vazquez was placed prior to my arrival. EXTREMITIES: No edema, cyanosis, or clubbing. SKIN: Shows some ecchymoses on the chest wall from prior fall. COURSE IN THE HOSPITAL: The patient had acute kidney injury secondary to urinary retention, received IV fluids and Vazquez drainage. He had some hydronephrosis and BPH. Creatinine came down to 1.0. He had postobstructive diuresis, which was managed. Dr. Morton saw him regarding his cardiomyopathy and that was stable. The patient had some episodes of nausea and vomiting, and was given symptomatic care and PPI. It was felt that he needed to continue Vazquez drainage and follow up with Dr. Guerra in the outpatient setting for possible voiding trial. He was given prescriptions for Flomax and Proscar, and to continue his [id number] medications and follow up in the office of Dr. Thomson. PHYSICAL EXAMINATION ON THE DAY OF DISCHARGE: VITAL SIGNS: Stable. LUNGS: Clear. HEART: Regular rhythm. ABDOMEN: Soft, nontender. GENITOURINARY: Vazquez was draining clear urine. FINAL DIAGNOSES: 1. Acute kidney injury secondary to acute urinary retention. 2. Hydronephrosis. 3. BPH. 4. History of nonischemic cardiomyopathy. 5. History of chronic systolic congestive heart failure. 6. History of hypertension. 7. Nausea and vomiting, nonspecific. 8. Gastritis, treated with PPI. DISCHARGE DISPOSITION: Follow up as above. MEDICATIONS: Per the discharge medication list. Marvin Juarez M.D. DR: Jamie JOB#: [id number] CC:
== END 2020-05-15 12:41 | disposition home or self-care (01) | DRG 726 ==
LOC: EMR 15:11 → 4E 15:22 → EDBEDREQ 15:29 → 4E 18:30
DX: N40.1 Benign prostatic hyperplasia with lower urinary tract symptoms (principal); N17.8 Other acute kidney failure; N13.30 Unspecified hydronephrosis; I50.22 Chronic systolic (congestive) heart failure; R33.8 Other retention of urine; N28.1 Cyst of kidney, acquired; I25.5 Ischemic cardiomyopathy; Z95.810 Presence of automatic (implantable) cardiac defibrillator; I11.0 Hypertensive heart disease with heart failure; R11.2 Nausea with vomiting, unspecified; K29.70 Gastritis, unspecified, without bleeding; I44.7 Left bundle-branch block, unspecified; E78.5 Hyperlipidemia, unspecified; Z86.19 Personal history of other infectious and parasitic diseases; Z88.8 Allergy status to other drugs, medicaments and biological substances; Z87.891 Personal history of nicotine dependence; I25.10 Atherosclerotic heart disease of native coronary artery without angina pectoris; Z91.81 History of falling; F41.9 Anxiety disorder, unspecified
CPT/HCPCS: 36415; 70450; 76770; 80048; 80053; 81003; 82044; 82550; 82570; 82962; 83735; 83880; 83935; 84100; 84105; 84133; 84153; 84300; 84550; 85007; 85025; 87086; 93005; 96360; 99285